=== PATIENT | female | born 1940 | race Caucasian/White ===

== ENCOUNTER 2025-02-14 13:52 | Inpatient (IN) | payer MEDICARE ==
--- NOTE | 2025-02-14 14:08 | ED ---
General Adult HPI - General Chief complaint: Shortness of Breath Stated complaint: Shortness of breath Time Seen by Provider: 02/14/25 14:00 Source: patient, RN notes reviewed Mode of arrival: EMS Limitations: no limitations - History of Present Illness Initial comments: Patient is an 84-year-old female present to the emergency department with concerns with difficulty breathing. Patient has chronic COPD. Symptoms are worse the past day. No fever. No cough. No calf pain or leg swelling. Symptoms are similar to previous chronic COPD. Patient is normally on 2 L nasal cannula. Oxygen in emergency department increased to 4 L and oxygen saturation is now 90%. - Related Data Home Medications Medication Instructions Recorded Confirmed Albuterol Inhaler [Ventolin Hfa 2 puff INHALATION RT-QID PRN 01/10/25 01/10/25 Inhaler] Fluticasone/Umeclidin/Vilanter 1 puff INHALATION RT-DAILY 01/10/25 01/10/25 [Trelegy Ellipta 200-62.5-25] Levothyroxine Sodium [Synthroid] 75 mcg PO DAILY 01/10/25 01/10/25 Mirtazapine 15 mg PO HS 01/10/25 01/10/25 Montelukast [Singulair] 10 mg PO DAILY 01/10/25 01/10/25 carvediloL [Coreg] 12.5 mg PO BID 01/10/25 01/10/25 lisinopriL 2.5 mg PO DAILY 01/10/25 01/10/25 Previous Rx's Medication Instructions Recorded Acetaminophen Tab [Tylenol] 650 mg PO Q6HR PRN tab 01/15/25 Dapagliflozin Propanediol [Farxiga] 10 mg PO DAILY tab 01/15/25 Enoxaparin [Lovenox] 40 mg SQ DAILY each 01/15/25 Furosemide [Lasix] 40 mg PO DAILY tab 01/15/25 Ipratropium-Albuterol Nebulize 3 ml INHALATION RT-Q2H PRN each 01/15/25 [Duoneb 0.5 mg-3 mg/3 ml Soln] Pantoprazole [Protonix] 40 mg PO AC-BRKFST tab 01/15/25 predniSONE See Taper PO DIRECTED #30 tab 01/15/25 Allergies Allergy/AdvReac Type Severity Reaction Status Date / Time aspirin Allergy Unknown Verified 01/10/25 11:23 diltiazem Allergy Swelling Verified 01/10/25 11:23 ezetimibe [From Zetia] Allergy Unknown Verified 01/10/25 11:23 metoprolol Allergy Swelling Verified 01/10/25 11:23 Penicillins Allergy Rash/Hives Verified 01/10/25 11:23 codeine AdvReac drowsiness/ Verified 01/10/25 11:23 nausea/vomi ting propoxyphene AdvReac drowsiness/ Verified 01/10/25 11:23 nausea/vomi ting [id number] Reductase AdvReac syncope Verified 01/10/25 11:23 Inhibitor Review of Systems ROS Statement: Those systems with pertinent positive or pertinent negative responses have been documented in the HPI. ROS Other: All systems not noted in ROS Statement are negative. Constitutional: Denies: fever Eyes: Denies: eye pain Respiratory: Reports: as per HPI, dyspnea. Denies: cough Cardiovascular: Reports: dyspnea on exertion. Denies: chest pain, orthopnea, edema Endocrine: Denies: fatigue Gastrointestinal: Denies: abdominal pain Past Medical History Past Medical History: Atrial Fibrillation, Heart Failure, COPD History of Any Multi-Drug Resistant Organisms: None Reported Past Surgical History: No Surgical Hx Reported Past Psychological History: No Psychological Hx Reported Smoking Status: Former smoker Past Alcohol Use History: None Reported Past Drug Use History: None Reported General Exam Limitations: no limitations General appearance: alert Head exam: Present: normocephalic Eye exam: Present: normal appearance Neck exam: Present: normal inspection Respiratory exam: Present: decreased breath sounds Cardiovascular Exam: Present: tachycardia, irregular rhythm GI/Abdominal exam: Present: soft. Absent: tenderness Extremities exam: Present: normal inspection. Absent: pedal edema, calf tenderness Neurological exam: Present: alert Psychiatric exam: Present: normal affect, normal mood Skin exam: Present: normal color Course Vital Signs 02/14/25 02/14/25 02/14/25 13:55 14:02 14:44 Temperature 98.2 F Pulse Rate 114 H 98 Respiratory 22 26 H Rate Blood Pressure 99/61 O2 Sat by Pulse 83 L Oximetry 02/14/25 02/14/25 15:20 16:00 Temperature Pulse Rate 109 H 105 H Respiratory 20 22 Rate Blood Pressure 106/93 114/85 O2 Sat by Pulse 87 L 92 L Oximetry EKG Findings - EKG Results: EKG: interpreted by ERMD, normal axis, normal QRS, normal ST/T EKG shows: tachycardia, atrial fibrillation Medical Decision Making - Medical Decision Making Was pt. sent in by a medical professional or institution ([facility]IM[facility] Newsome, [employer], urgent care, hospital, or [place] health care facility...) When possible be specific @ -No Did you speak to anyone other than the patient for history (EMS, parent, family, police, friend...)? What history was obtained from this source @ -No Did you review nursing and triage notes (agree or disagree)? Why? @ -I reviewed and agree with nursing and triage notes Were old charts reviewed (outside hosp., previous admission, EMS record, old EKG, old radiological studies, urgent care reports/EKG's, [place] health care facility records)? Report findings @ -No old charts were reviewed Differential Diagnosis (chest pain, altered mental status, abdominal pain women, abdominal pain men, vaginal bleeding, weakness, fever, dyspnea, syncope, headache, dizziness, GI bleed, back pain, seizure, CVA, palpatations, mental he alth, musculoskeletal)? @ -Differential Dyspnea: Coronary syndrome, arrhythmia, tamponade, asthma, COPD, pulmonary embolism, pneumonia, pneumothorax, pulmonary effusion, anaphylaxis, diabetic ketoacidosis, flailed chest, pulmonary contusion, diaphragmatic rupture, anemia, neuromuscular, this is not meant to be an all-inclusive list. EKG interpreted by me (3pts min.). @ -As above X-rays interpreted by me (1pt min.). @ -Chest x-ray without acute abnormality CT interpreted by me (1pt min.). @ -None done U/S interpreted by me (1pt. min.). @ -None done What testing was considered but not performed or refused? (CT, X-rays, U/S, labs)? Why? @ -None What meds were considered but not given or refused? Why? @ -None Did you discuss the management of the patient with other professionals (pro fessionals i.e. [facility]IMON Newsome, [employer], lab, RT, psych nurse, hospital social worker, licensed club manager, teacher, mail officer, vocational case manager)? Give summary @ -Case was discussed with peer Alfa or Darwin who will admit covering hospital call Was smoking cessation discussed for >3mins.? @ -No Was critical care preformed (if so, how long)? @ -No Were there social determinants of health that impacted care today? How? (Homeles sness, low income, unemployed, alcoholism, drug addiction, transportation, low edu. Level, literacy, decrease access to med. care, care home, rehab)? @ -No Was there de-escalation of care discussed even if they declined (Discuss DNR or withdrawal of care, Hospice)? DNR status @ -No What co-morbidities impacted this encounter? (DM, HTN, Smoking, COPD, CAD, Cancer, CVA, ARF, Chemo, Hep., AIDS, mental health diagnosis, sleep apnea, morbid obesity)? @ -History of COPD Was patient admitted / discharged? Hospital course, mention meds given and route, prescriptions, significant lab abnormalities, going to OR and other pertinent info. @ -Patient presents with dyspnea similar to previous COPD. Patient is hypoxic. Patient received nebulizer treatment and felt a little bit better. When oxygen was decreased patient became hypoxic again. Patient will be admitted with pulmonary consult. Patient was reevaluated and updated. Admission orders are written. Undiagnosed new problem with uncertain prognosis? @ -No Drug Therapy requiring intensive monitoring for toxicity (Heparin, Nitro, Insulin, Cardizem)? @ -No Were any procedures done? @ -No Diagnosis/symptom? @ -COPD Acute, or Chronic, or Acute on Chronic? @ -Acute Uncomplicated (without systemic symptoms) or Complicated (systemic symptoms)? @ -Default Side effects of treatment? @ -No Exacerbation, Progression, or Severe Exacerbation? @ -No Poses a threat to life or bodily function? How? (Chest pain, [place], [place], pneumonia, PE, COPD, DKA, ARF, appy, cholecystitis, CVA, Diverticulitis, Homicidal, Suicidal, threat to staff... and all critical care pts) @ -Threat to pulmonary function - Lab Data Result diagrams: 02/14/25 14:28 02/14/25 14:28 Lab Results 02/14/25 02/14/25 02/14/25 Range/Units 14:28 14:28 14:28 WBC 7.46 (4.50-10.00) 10*3/uL RBC 3.54 L (4.10-5.20) 10*6/uL Hgb 11.2 L (12.0-15.0) g/dL Hct 34.7 L (37.2-46.3) % MCV 98.0 H (80.0-97.0) fL MCH 31.6 (27.0-32.0) pg MCHC 32.3 (32.0-37.0) g/dL Plt Count 254 (140-440) 10*3/uL MPV 9.6 (9.5-12.2) fL Immature Gran % (Auto) 2.4 % Neutrophils % 67.5 % Lymphocytes % 16.8 % Monocytes % 10.9 % Eosinophils % 1.2 % Basophils % 1.2 % Immature Gran # 0.18 H (0.00-0.04) 10*3/uL Neutrophils # 5.04 (1.80-7.70) 10*3/uL Lymphocytes # 1.25 (0.90-5.00) 10*3/uL Monocytes # 0.81 (0.20-1.00) 10*3/uL Eosinophils # 0.09 (0.04-0.35) 10*3/uL Basophils # 0.09 (0.00-0.10) 10*3/uL PT 11.0 (10.0-12.5) sec INR 1.0 (<1.2) APTT 24.8 (22.0-30.0) sec Sodium 143 (137-145) mmol/L Potassium 3.9 (3.5-5.1) mmol/L Chloride 101 (98-107) mmol/L Carbon Dioxide 35 H (22-30) mmol/L Anion Gap 7 mmol/L BUN 24 H (7-17) mg/dL Creatinine 0.93 (0.52-1.04) mg/dL Est GFR (CKD-EPI)AfAm 67 (>60 ml/min/1.73 sqM) Est GFR (CKD-EPI)NonAf 58 (>60 ml/min/1.73 sqM) Glucose 181 H (74-99) mg/dL Plasma Lactic Acid Dereck (0.7-2.0) mmol/L Calcium 8.9 (8.4-10.2) mg/dL Magnesium 1.9 (1.6-2.3) mg/dL Total Bilirubin 1.7 H (0.2-1.3) mg/dL AST 23 (14-36) U/L ALT 11 (4-34) U/L Alkaline Phosphatase 98 (38-126) U/L Troponin I (0.000-0.034) ng/mL NT-Pro-B Natriuret Pep 7950 pg/mL Total Protein 6.6 (6.3-8.2) g/dL Albumin 3.7 (3.5-5.0) g/dL 02/14/25 02/14/25 Range/Units 14:28 14:28 WBC (4.50-10.00) 10*3/uL RBC (4.10-5.20) 10*6/uL Hgb (12.0-15.0) g/dL Hct (37.2-46.3) % MCV (80.0-97.0) fL MCH (27.0-32.0) pg MCHC (32.0-37.0) g/dL Plt Count (140-440) 10*3/uL MPV (9.5-12.2) fL Immature Gran % (Auto) % Neutrophils % % Lymphocytes % % Monocytes % % Eosinophils % % Basophils % % Immature Gran # (0.00-0.04) 10*3/uL Neutrophils # (1.80-7.70) 10*3/uL Lymphocytes # (0.90-5.00) 10*3/uL Monocytes # (0.20-1.00) 10*3/uL Eosinophils # (0.04-0.35) 10*3/uL Basophils # (0.00-0.10) 10*3/uL PT (10.0-12.5) sec INR (<1.2) APTT (22.0-30.0) sec Sodium (137-145) mmol/L Potassium (3.5-5.1) mmol/L Chloride (98-107) mmol/L Carbon Dioxide (22-30) mmol/L Anion Gap mmol/L BUN (7-17) mg/dL Creatinine (0.52-1.04) mg/dL Est GFR (CKD-EPI)AfAm (>60 ml/min/1.73 sqM) Est GFR (CKD-EPI)NonAf (>60 ml/min/1.73 sqM) Glucose (74-99) mg/dL Plasma Lactic Acid Dereck 1.2 (0.7-2.0) mmol/L Calcium (8.4-10.2) mg/dL Magnesium (1.6-2.3) mg/dL Total Bilirubin (0.2-1.3) mg/dL AST (14-36) U/L ALT (4-34) U/L Alkaline Phosphatase (38-126) U/L Troponin I <0.012 (0.000-0.034) ng/mL NT-Pro-B Natriuret Pep pg/mL Total Protein (6.3-8.2) g/dL Albumin (3.5-5.0) g/dL Disposition Clinical Impression: COPD with exacerbation Disposition: ADMITTED IP TO THIS HOSP Is patient prescribed a controlled substance at d/c from ED?: No Referrals: Nonstaff,Physician [Primary Care Provider] - 1-2 days Time of Disposition: 16:55
[2025-02-14] MEDS: methylPREDNISolone SOD SUCCI 125 MG/2 ML VIAL IV STA (14:18)
[2025-02-14 14:39] LABS: Basophils # (A) 0.09 10*3/uL (0.00-0.10); Basophils % (A) 1.2 %; Eosinophils # (A) 0.09 10*3/uL (0.04-0.35); Eosinophils % (A) 1.2 %; HCT 34.7 % (37.2-46.3); HGB 11.2 g/dL (12.0-15.0); Lymphocytes # (A) 1.25 10*3/uL (0.90-5.00); Lymphocytes % (A) 16.8 %; MCH 31.6 pg (27.0-32.0); MCHC 32.3 g/dL (32.0-37.0); MCV 98.0 fL (80.0-97.0); Monocytes # (A) 0.81 10*3/uL (0.20-1.00); Monocytes % (A) 10.9 %; Neutrophils # (A) 5.04 10*3/uL (1.80-7.70); Neutrophils % (A) 67.5 %; Platelet Count 254 10*3/uL (140-440); RBC 3.54 10*6/uL (4.10-5.20); RDW 14.0 % (11.5-14.5); WBC 7.46 10*3/uL (4.50-10.00)
[2025-02-14] MEDS: IPRATROPIUM-ALBUTEROL 3 ML NEB INHALATION STA ×2 (14:44→21:09)
[2025-02-14 14:51] LABS: INR 1.0 (<1.2); Partial Thromboplastin Time 24.8 sec (22.0-30.0); Prothrombin Time 11.0 sec (10.0-12.5)
[2025-02-14 14:55] LABS: ALT 11 U/L (4-34); AST 23 U/L (14-36); African American GFR (CKD) 67 (>60 ml/min/1.73 sqM); Albumin 3.7 g/dL (3.5-5.0); Alkaline Phosphatase 98 U/L (38-126); Anion Gap 7 mmol/L; Blood Urea Nitrogen 24 mg/dL (7-17); Calcium 8.9 mg/dL (8.4-10.2); Carbon Dioxide 35 mmol/L (22-30); Chloride 101 mmol/L (98-107); Glucose 181 mg/dL (74-99); Magnesium 1.9 mg/dL (1.6-2.3); Non-African American GFR(CKD) 58 (>60 ml/min/1.73 sqM); Potassium 3.9 mmol/L (3.5-5.1); Sodium 143 mmol/L (137-145); Total Protein 6.6 g/dL (6.3-8.2)
[2025-02-14 15:03] LABS: NT-Pro-B-Type Natriuretic Pept 7950 pg/mL
--- NOTE | 2025-02-14 15:23 | XR ---
EXAMINATION TYPE: XR chest 2V DATE OF EXAM: 02/14/2025 3:11 PM COMPARISON: 01/15/2025 CLINICAL INDICATION: Female, 84 years old with history of difficulty breathing: Shortness of breath TECHNIQUE: XR chest 2V views of the chest are obtained. FINDINGS: Scattered senescent parenchymal changes noted. Hyperinflation compatible with COPD. No evidence for infiltrate. No evidence for atelectasis. Heart size is stable. Mediastinal structures are stable and grossly unremarkable. No evidence for hilar prominence. Degenerative changes dorsal spine. IMPRESSION: 1. No evidence for acute pulmonary disease. [facility], , 02/14/2025 3:20 PM
[2025-02-14] MEDS ORDERED: IPRATROPIUM-ALBUTEROL 3 ML NEB INHALATION PRN (16:56)
[2025-02-14] MEDS ORDERED: NALOXONE 0.4 MG/ML 1 ML VIAL IVP PRN (16:56)
[2025-02-14] MEDS ORDERED: ALBUTEROL NEBULIZED 2.5 MG/3 ML INHALATION PRN (17:18)
--- NOTE | 2025-02-14 17:21 | P.HPIM ---
History of Present Illness H&P Date: 02/14/25 Patient is a 84-year-old female with medical history of chronic hypoxic respiratory failure secondary to COPD on home oxygen 3L, HFrEF EF 20 to 25%, severe pulmonary hypertension, moderate to severe MR, severe TR, persistent A- fib, history of hypothyroidism, who presented to the ER on 02/14/2025 with shortness of breath. Symptoms started earlier this morning, she does have chronic orthopnea that is worse today, denies associated lower extremity swelling, no wheezing however she noted that she never has wheezes, denies chest pain, abdominal pain, dysuria Of note, patient had a recent admission on early January 2025 for multifactorial acute on chronic hypoxic respiratory failure secondary to COPD, A-fib RVR, CHF exacerbation. She underwent extensive workup in the ER. Afebrile on admission, heart rate in 90s, was initially placed on 4 L, was still hypoxic at 87, oxygen flow increased to 6 L. Blood work significant for normal WBC count, stable hemoglobin 11.3, normal platelet count, sodium and potassium WNL, bicarb 35, creatinine 0.93, glucose 181, bilirubin 1.7, normal AST, ALT, troponin negative, BNP 7950, up from 4428 last admission. Chest x-ray read by cardiology is unremarkable, however, on my interpretation appears as pulmonary vascular congestion. Patient evaluated for acute on chronic hypoxic respiratory failure secondary to COPD and CHF exacerbation. EKG showed A-fib with RVR 107, QTc 384. Nonspecific ST and T wave abnormalities. Pertinent positives and negatives as discussed in HPI, a complete review of systems was performed and all other systems are negative. Patient seen and examined at bedside. Vital signs reviewed General: nontoxic, no distress, appears at stated age Derm: warm, dry Head: atraumatic, normocephalic, symmetric Eyes: EOMI, no lid lag, anicteric sclera, pupils equal round reactive to light ENT: Nose and ears atraumatic Neck: No thyromegaly, supple Mouth: no lip lesion, mucus membranes moist Cardiovascular: S1S2 reg, murmur, no edema Lungs: Diminished bilateral breath, bibasilar crackles, no wheeze, no accessory muscle use Abdominal: soft, nontender to palpation, no guarding, no appreciable organomegaly Ext: no gross muscle atrophy, muscle strength muscle strength 5 out of 5 in all 4 extremities, no contractures Neuro: CN II-XII grossly intact Psych: Alert, oriented, appropriate affect Assessment/Plan: Chronic hypoxic respiratory failure, multifactorial, secondary to COPD exacerbation and HFrEF exacerbation Severe pulmonary hypertension moderate to severe MR, severe TR, - Continue with IV Lasix 40 daily -Once medication reconciliation is done continue lisinopril 2.5 mg daily, Coreg 12.5 p.o. twice daily, Farxiga 10 mg p.o. daily -Continue with prednisone 40 mg daily -Continue Singulair 10 mg p.o. daily -Continue with Symbicort, DuoNebs 4 times daily and every 2 hours as needed -Strict I's and O's, daily weights -Continue telemetry -Pulmonology consulted, appreciate recommendations Hypothyroidism: Continue levothyroxine 75 mcg daily Chronic A-fib: Continue Coreg 12.5 twice daily, on Lovenox 40 mg subcu daily The patient is admitted with an anticipated greater than 2 midnight stay as inpatient status for evaluation of acute on chronic hypoxic respiratory failure. Surrogate decision-maker: Son CODE STATUS DNR/DNI DVT prophylaxis: Lovenox Anticipated discharge date: TBD Anticipated discharge place: TBD A total of 40 minutes was spent on the care of this complex patient more than 50% of the time was spent in counseling and care coordination. Past Medical History Past Medical History: Atrial Fibrillation, Heart Failure, COPD History of Any Multi-Drug Resistant Organisms: None Reported Past Surgical History: No Surgical Hx Reported Past Psychological History: No Psychological Hx Reported Smoking Status: Former smoker Past Alcohol Use History: None Reported Past Drug Use History: None Reported Medications and Allergies Home Medications Medication Instructions Recorded Confirmed Type Albuterol Inhaler [Ventolin Hfa 2 puff INHALATION RT-QID PRN 01/10/25 01/10/25 History Inhaler] Fluticasone/Umeclidin/Vilanter 1 puff INHALATION RT-DAILY 01/10/25 01/10/25 History [Trelegy Ellipta 200-62.5-25] Levothyroxine Sodium [Synthroid] 75 mcg PO DAILY 01/10/25 01/10/25 History Mirtazapine 15 mg PO HS 01/10/25 01/10/25 History Montelukast [Singulair] 10 mg PO DAILY 01/10/25 01/10/25 History carvediloL [Coreg] 12.5 mg PO BID 01/10/25 01/10/25 History lisinopriL 2.5 mg PO DAILY 01/10/25 01/10/25 History Acetaminophen Tab [Tylenol] 650 mg PO Q6HR PRN tab 01/15/25 Rx Dapagliflozin Propanediol [Farxiga] 10 mg PO DAILY tab 01/15/25 Rx Enoxaparin [Lovenox] 40 mg SQ DAILY each 01/15/25 Rx Furosemide [Lasix] 40 mg PO DAILY tab 01/15/25 Rx Ipratropium-Albuterol Nebulize 3 ml INHALATION RT-Q2H PRN each 01/15/25 Rx [Duoneb 0.5 mg-3 mg/3 ml Soln] Pantoprazole [Protonix] 40 mg PO AC-BRKFST tab 01/15/25 Rx predniSONE See Taper PO DIRECTED #30 tab 01/15/25 Rx Allergies Allergy/AdvReac Type Severity Reaction Status Date / Time aspirin Allergy Unknown Verified 01/10/25 11:23 diltiazem Allergy Swelling Verified 01/10/25 11:23 ezetimibe [From Zetia] Allergy Unknown Verified 01/10/25 11:23 metoprolol Allergy Swelling Verified 01/10/25 11:23 Penicillins Allergy Rash/Hives Verified 01/10/25 11:23 codeine AdvReac drowsiness/ Verified 01/10/25 11:23 nausea/vomi ting propoxyphene AdvReac drowsiness/ Verified 01/10/25 11:23 nausea/vomi ting [id number] Reductase AdvReac syncope Verified 01/10/25 11:23 Inhibitor Physical Exam Vitals: Vital Signs Temp Pulse Resp BP Pulse Ox 02/14/25 16:00 105 H 22 114/85 92 L 02/14/25 15:20 109 H 20 106/93 87 L 02/14/25 14:44 98 02/14/25 14:02 26 H 02/14/25 13:55 98.2 F 114 H 22 99/61 83 L Intake and Output 02/14/25 02/14/25 02/14/25 06:59 14:59 22:59 Other: Weight 60.328 kg Results CBC & Chem 7: 02/14/25 14:28 02/14/25 14:28 Labs: Abnormal Lab Results - Last 24 Hours (Table) 02/14/25 02/14/25 Range/Units 14:28 14:28 RBC 3.54 L (4.10-5.20) 10*6/uL Hgb 11.2 L (12.0-15.0) g/dL Hct 34.7 L (37.2-46.3) % MCV 98.0 H (80.0-97.0) fL Immature Gran # 0.18 H (0.00-0.04) 10*3/uL Carbon Dioxide 35 H (22-30) mmol/L BUN 24 H (7-17) mg/dL Glucose 181 H (74-99) mg/dL Total Bilirubin 1.7 H (0.2-1.3) mg/dL
[2025-02-14] MEDS: FUROSEMIDE 10 MG/ML 4 ML VIAL IV SCH (18:03)
[2025-02-14] MEDS: MIRTAZAPINE 15 MG TAB PO SCH (20:47)
[2025-02-14] MEDS ORDERED: MIRTAZAPINE 15 MG TAB PO SCH (21:00)
[2025-02-14] MEDS ORDERED: methylPREDNISolone SOD SUCCI 125 MG/2 ML VIAL IV SCH (21:00)
[2025-02-14] MEDS: IPRATROPIUM-ALBUTEROL 3 ML NEB INHALATION SCH (21:11)
[2025-02-15 06:16] LABS: Glucose,Whole Blood 145 mg/dL (70-110)
[2025-02-15] MEDS: SYMBICORT 160-4.5 MCG INHALER INHALATION SCH (06:24)
[2025-02-15] MEDS: LEVOTHYROXINE 75 MCG TAB PO SCH (06:57)
[2025-02-15] MEDS ORDERED: TIOTROPIUM 2.5 MCG INHALER INHALATION SCH (08:00)
[2025-02-15] MEDS: ENOXAPARIN 40 MG/0.4 ML SYRINGE SQ SCH (08:32)
[2025-02-15] MEDS: MONTELUKAST 10 MG TAB PO SCH (08:33)
--- NOTE | 2025-02-15 11:17 | P.PN ---
Subjective Progress Note Date: 02/15/25 Hospital Course: Patient is a 84-year-old female with medical history of chronic hypoxic respir atory failure secondary to COPD on home oxygen 3L, HFrEF EF 20 to 25%, severe pulmonary hypertension, moderate to severe MR, severe TR, persistent A-fib, history of hypothyroidism, who presented to the ER on 02/14/2025 with shortness of breath. Symptoms started earlier this morning, she does have chronic orthopnea that is worse today, denies associated lower extremity swelling, no wheezing however she noted that she never has wheezes, denies chest pain, abdominal pain, dysuria Of note, patient had a recent admission on early January 2025 for multifactorial acute on chronic hypoxic respiratory failure secondary to COPD, A-fib RVR, CHF exacerbation. She underwent extensive workup in the ER. Afebrile on admission, heart rate in 90s, was initially placed on 4 L, was still hypoxic at 87, oxygen flow increased to 6 L. Blood work significant for normal WBC count, stable hemoglobin 11.3, normal platelet count, sodium and potassium WNL, bicarb 35, creatinine 0.93, glucose 181, bilirubin 1.7, normal AST, ALT, troponin negative, BNP 7950, up from 4428 last admission. Chest x-ray read by cardiology is unremarkable, however, on my interpretation appears as pulmonary vascular congestion. Patient evaluated for acute on chronic hypoxic respiratory failure secondary to COPD and CHF exacerbation. EKG showed A-fib with RVR 107, QTc 384. Nonspecific ST and T wave abnormalities. Patient was admitted for management of hypoxic respiratory failure. 02/15/2025: Seen examined at bedside, no acute events overnight. Patient states that she initially started feeling better, however, in the morning she got more short of breath with exertion. She is satting well on 6 L of nasal cannula, will try to wean down, blood pressure is normotensive, she is afebrile. CBC and CMP pending. She will be continued on prednisone and IV Lasix. Pertinent positives and negatives as discussed above, a complete review of systems was performed and all other systems are negative. Vitals Signs Reviewed. General: [nontoxic], [no distress], [appears at stated age] Derm: [warm], [dry] Head: [atraumatic], [normocephalic], [symmetric] Eyes: [EOMI], [no lid lag], [anicteric sclera] Mouth: [no lip lesion], [mucus membranes moist] Cardiovascular: [S1S2 reg], [no murmur] Lungs: [Diminished bilateral breath, bibasilar crackles, no wheeze, no accessory muscle use Abdominal: [soft], [ nontender to palpation], [no guarding], [no appreciable organomegaly] Ext: [no gross muscle atrophy], [no edema], [no contractures] Neuro: [ CN II-XI grossly intact], [no focal neuro deficits] Psych: [Alert], [oriented], [appropriate affect] Assessment and Plan: Acute on chronic hypoxic respiratory failure, multifactorial, secondary to COPD exacerbation and HFrEF exacerbation Severe pulmonary hypertension moderate to severe MR, severe TR, - Continue with IV Lasix 40 daily -continue lisinopril 2.5 mg daily, Coreg 12.5 p.o. twice daily -She is not on GDMT at this time, previously was on Farxiga, will need to follow-up with cardiology -Continue with prednisone 40 mg daily -Continue Singulair 10 mg p.o. daily -Continue with Symbicort, DuoNebs 4 times daily and every 2 hours as needed -Strict I's and O's, daily weights -Wean down oxygen as tolerated -Continue telemetry -Pulmonology consulted, appreciate recommendations Hypothyroidism: Continue levothyroxine 75 mcg daily Chronic A-fib: Continue Coreg 12.5 twice daily, on Lovenox 40 mg subcu daily DVT ppx: Lovenox Code status: DNR/DNI Anticipated discharge place: [facility] Anticipated discharge time: TBD Objective - Vital Signs Vital signs: Vital Signs Temp 97.4 F L 02/15/25 07:00 Pulse 91 02/15/25 07:00 Resp 17 02/15/25 07:00 BP 130/80 02/15/25 07:00 Pulse Ox 99 02/15/25 07:00 FiO2 Intake & Output 02/14/25 02/15/25 02/15/25 18:59 06:59 18:59 Intake Total 240 Balance 240 Weight 60.328 kg 57.5 kg Intake: Oral 240 Other: Voiding Method Bedside Commode Toilet Diaper # Voids 1 - Labs CBC & Chem 7: 02/14/25 14:28 02/14/25 14:28 Labs: Abnormal Lab Results - Last 24 Hours (Table) 02/14/25 02/14/25 02/14/25 Range/Units 14:28 14:28 14:28 RBC 3.54 L (4.10-5.20) 10*6/uL Hgb 11.2 L (12.0-15.0) g/dL Hct 34.7 L (37.2-46.3) % MCV 98.0 H (80.0-97.0) fL Immature Gran # 0.18 H (0.00-0.04) 10*3/uL D-Dimer 1.70 H (<0.60) mg/L FEU Carbon Dioxide 35 H (22-30) mmol/L BUN 24 H (7-17) mg/dL Glucose 181 H (74-99) mg/dL POC Glucose (mg/dL) (70-110) mg/dL Total Bilirubin 1.7 H (0.2-1.3) mg/dL 02/15/25 Range/Units 06:15 RBC (4.10-5.20) 10*6/uL Hgb (12.0-15.0) g/dL Hct (37.2-46.3) % MCV (80.0-97.0) fL Immature Gran # (0.00-0.04) 10*3/uL D-Dimer (<0.60) mg/L FEU Carbon Dioxide (22-30) mmol/L BUN (7-17) mg/dL Glucose (74-99) mg/dL POC Glucose (mg/dL) 145 H (70-110) mg/dL Total Bilirubin (0.2-1.3) mg/dL
[2025-02-15 12:00] LABS: Basophils # (A) 0.02 X 10*3/uL (0.00-0.10); Basophils % (A) 0.4 %; Eosinophils # (A) 0 X 10*3/uL (0.04-0.35); Eosinophils % (A) 0 %; HCT 35.3 % (37.2-46.3); HGB 11.0 g/dL (12.0-15.0); Immature Grans, Automated 2.60 %; Lymphocytes # (A) 0.66 X 10*3/uL (0.90-5.00); Lymphocytes % (A) 13.4 %; MCH 31.0 pg (27.0-32.0); MCHC 31.2 g/dL (32.0-37.0); MCV 99.4 FL (80.0-97.0); Monocytes # (A) 0.18 X 10*3/uL (0.20-1.00); Monocytes % (A) 3.7 %; NRBC Per 100 WBC 0 X 10*3/uL (0.00-0.01); Neutrophils # (A) 3.94 X 10*3/uL (1.80-7.70); Neutrophils % (A) 79.9 %; Platelet Count 261 X 10*3/uL (140-440); RBC 3.55 X 10*6/uL (4.10-5.20); RDW 13.9 % (11.5-14.5); WBC 4.93 X 10*3/uL (4.50-10.00)
--- NOTE | 2025-02-15 12:35 | XR ---
EXAMINATION TYPE: XR chest 1V portable DATE OF EXAM: 02/15/2025 12:27 PM COMPARISON: 02/14/2025 CLINICAL INDICATION: Female, 84 years old with history of persistent hypoxia, TECHNIQUE: XR chest 1V portable views of the chest are obtained. FINDINGS: Demonstrated are scattered senescent parenchymal change. There is no evidence for focal infiltrate. Linear atelectasis or parenchymal scar right midlung zone. The heart is stable. Hilar and mediastinal structures are within normal limits. Degenerative changes are seen of the dorsal spine. IMPRESSION: 1. Chronic changes without evidence for acute pulmonary disease. [facility], , 02/15/2025 12:33 PM
[2025-02-15 12:52] LABS: ALT 10 U/L (8-44); AST 17 U/L (13-35); Albumin 3.6 g/dL (3.8-4.9); Albumin/Globulin Ratio 1.33 Ratio (1.60-3.17); Alkaline Phosphatase 96 U/L (41-126); Anion Gap 10.80 mmol/L (4.00-12.00); BUN/Creat Ratio 26.80 Ratio (12.00-20.00); Blood Urea Nitrogen 26.8 mg/dL (9.0-27.0); Calcium 8.7 mg/dL (8.7-10.3); Carbon Dioxide 32.2 mmol/L (21.6-31.8); Chloride 101 mmol/L (96-109); Globulin 2.7 g/dL (1.6-3.3); Glucose 148 mg/dL (70-110); Potassium 4.6 mmol/L (3.5-5.5); Sodium 144 mmol/L (135-145); Total Protein 6.3 g/dL (6.2-8.2)
--- NOTE | 2025-02-15 14:53 | P.CNPUL ---
History of Present Illness Consult date: 02/15/25 Requesting physician: Alvaro Ojeda Reason for consult: dyspnea, COPD Chief complaint: Shortness of breath, wheezing History of present illness: This is an 84-year-old female patient with a known history of atrial fibrillation, congestive heart failure, oxygen dependent chronic obstructive pulmonary disease, former smoker. She presented here to the emergency room yesterday with a 2 to 3-day history of increasing shortness of breath, cough and congestion. No fever or chills. No nausea vomiting diarrhea. Cough is dry nonproductive. Mostly dyspnea with exertion. Chest x-ray reveals no evidence of an acute pulmonary disease. White count 4.9. Hemoglobin 11.0. Platelets 261. Sodium 144. Potassium 4.6. BUN 27. Creatinine 1.0. Glucose 148. Troponin negative x 1. proBNP 7950. She is seen today in consultation on the regular medical floor. She is currently sitting up in bed. Awake and alert in no acute distress. Maintaining O2 saturations in the 90s on 3 L/min per nasal cannula. She has been afebrile. Hemodynamically stable. Review of Systems REVIEW OF SYSTEMS: CONSTITUTIONAL: Denies any recent significant weight loss or weight gain. EYES: Denies change in vision. EARS, NOSE, MOUTH, THROAT: Denies headaches, denies sore throat. CARDIOVASCULAR: Denies chest pain, palpitations or syncopal episodes. RESPIRATORY: Positive for shortness of breath, cough, congestion no hemoptysis. GASTROINTESTINAL: Denies change in appetite, denies abdominal pain GENITOURINARY: Denies hematuria, denies infections. MUSKULOSKELETAL: Denies pain, denies swelling. INTEGUMENTARY: Denies rash, denies eczema. NEUROLOGICAL: Denies recent memory loss, no recent seizure activity. PSYCHIATRIC: Denies anxiety, denies depression. HEMATOLOGIC/LYMPHATIC: Denies anemia, denies enlarged lymph nodes. Past Medical History Past Medical History: Atrial Fibrillation, Heart Failure, COPD, Thyroid Disorder History of Any Multi-Drug Resistant Organisms: None Reported Past Surgical History: No Surgical Hx Reported Past Psychological History: No Psychological Hx Reported Smoking Status: Former smoker Past Alcohol Use History: None Reported Past Drug Use History: None Reported Medications and Allergies Home Medications Medication Instructions Recorded Confirmed Type Albuterol Inhaler [Ventolin Hfa 2 puff INHALATION RT-QID PRN 01/10/25 02/14/25 History Inhaler] Fluticasone/Umeclidin/Vilanter 1 puff INHALATION RT-DAILY 01/10/25 02/14/25 History [Trelegy Ellipta 200-62.5-25] Levothyroxine Sodium [Synthroid] 75 mcg PO DAILY 01/10/25 02/14/25 History Mirtazapine 15 mg PO BID 01/10/25 02/14/25 History Montelukast [Singulair] 10 mg PO DAILY 01/10/25 02/14/25 History carvediloL [Coreg] 12.5 mg PO BID 01/10/25 02/14/25 History lisinopriL 2.5 mg PO DAILY 01/10/25 02/14/25 History Acetaminophen Tab [Tylenol] 650 mg PO Q6HR PRN tab 01/15/25 02/14/25 Rx Furosemide [Lasix] 40 mg PO DAILY tab 01/15/25 02/14/25 Rx Allergies Allergy/AdvReac Type Severity Reaction Status Date / Time aspirin Allergy Unknown Verified 01/10/25 11:23 diltiazem Allergy Swelling Verified 01/10/25 11:23 ezetimibe [From Zetia] Allergy Unknown Verified 01/10/25 11:23 metoprolol Allergy Swelling Verified 01/10/25 11:23 Penicillins Allergy Rash/Hives Verified 01/10/25 11:23 codeine AdvReac drowsiness/ Verified 01/10/25 11:23 nausea/vomi ting propoxyphene AdvReac drowsiness/ Verified 01/10/25 11:23 nausea/vomi ting [id number] Reductase AdvReac syncope Verified 01/10/25 11:23 Inhibitor Physical Exam Vitals: Vital Signs Temp Pulse Pulse Pulse Resp BP BP 02/15/25 14:23 98.1 F 95 22 96/61 02/15/25 07:00 97.4 F L 91 17 130/80 02/15/25 06:35 87 18 02/15/25 06:25 89 18 02/15/25 04:05 97.8 F 67 17 02/15/25 02:00 86 19 02/14/25 21:21 96 02/14/25 21:12 98 02/14/25 20:00 97.7 F 93 20 02/14/25 18:30 112 H 24 102/84 02/14/25 18:02 135 H 27 H 92/69 02/14/25 16:00 105 H 22 114/85 02/14/25 15:20 109 H 20 106/93 02/14/25 14:44 98 BP Pulse Ox 02/15/25 14:23 94 L 02/15/25 07:00 99 02/15/25 06:35 02/15/25 06:25 02/15/25 04:05 126/79 96 02/15/25 02:00 103/79 99 02/14/25 21:21 02/14/25 21:12 02/14/25 20:00 106/85 95 02/14/25 18:30 93 L 02/14/25 18:02 92 L 02/14/25 16:00 92 L 02/14/25 15:20 87 L 02/14/25 14:44 Intake and Output 02/14/25 02/15/25 02/15/25 22:59 06:59 14:59 Intake Total 480 Balance 480 Intake: Oral 480 Other: Voiding Method Bedside Commode Bedside Commode Toilet Diaper # Voids 1 2 Weight 60.328 kg 57.5 kg GENERAL EXAM: Alert, pleasant 84-year-old female, on 3 L nasal cannula, fairly comfortable in no apparent distress. HEAD: Normocephalic. EYES: Normal reaction of pupils, equal size. NOSE: Clear with pink turbinates. THROAT: No erythema or exudates. NECK: No masses, no JVD. CHEST: No chest wall deformity. LUNGS: Equal air entry with bilateral end expiratory wheeze, diminished. CVS: S1 and S2 normal with no audible murmur, regular rhythm. ABDOMEN: No hepatosplenomegaly, normal bowel sounds, no guarding or rigidity. SPINE: No scoliosis or deformity SKIN: No rashes CENTRAL NERVOUS SYSTEM: No focal deficits, tone is normal in all 4 extremities. EXTREMITIES: There is no peripheral edema. No clubbing, no cyanosis. Peripheral pulses are intact. Results - Laboratory Findings CBC and BMP: 02/15/25 06:45 02/15/25 06:45 PT/INR, D-dimer PT 11.0 sec (10.0-12.5) 02/14/25 14:28 INR 1.0 (<1.2) 02/14/25 14:28 D-Dimer 1.70 mg/L FEU (<0.60) H 02/14/25 14:28 Abnormal lab findings: Abnormal Labs 02/14/25 02/14/25 02/14/25 14:28 14:28 14:28 RBC 3.54 L Hgb 11.2 L Hct 34.7 L MCV 98.0 H MCHC Immature Gran # 0.18 H Lymphocytes # Monocytes # Eosinophils # D-Dimer 1.70 H Carbon Dioxide 35 H BUN 24 H Est GFR (CKD-EPI) BUN/Creatinine Ratio Glucose 181 H POC Glucose (mg/dL) Total Bilirubin 1.7 H Albumin Albumin/Globulin Ratio 02/15/25 02/15/25 02/15/25 06:15 06:45 06:45 RBC 3.55 L Hgb 11.0 L Hct 35.3 L MCV 99.4 H MCHC 31.2 L Immature Gran # 0.13 H Lymphocytes # 0.66 L Monocytes # 0.18 L Eosinophils # 0 L D-Dimer Carbon Dioxide 32.2 H BUN Est GFR (CKD-EPI) 56 L BUN/Creatinine Ratio 26.80 H Glucose 148 H POC Glucose (mg/dL) 145 H Total Bilirubin Albumin 3.6 L Albumin/Globulin Ratio 1.33 L - Diagnostic Findings Chest x-ray: image reviewed Assessment and Plan Assessment: Acute on chronic hypoxic respiratory failure secondary to an acute exacerbation of chronic obstructive pulmonary disease and acute exacerbation of systolic congestive heart failure History of oxygen dependent chronic obstructive pulmonary disease, maintained on Trelegy and oxygen at 3 L/min per nasal cannula Former smoker History of systolic congestive heart failure with an ejection fraction 20 to 25% Mild to moderate mitral regurgitation History of atrial fibrillation, not on anticoagulation Hypothyroidism Plan: The patient was seen and evaluated Chest x-ray, labs and medications reviewed No acute pulmonary process Initiated on DuoNeb inhalations Initiated on Symbicort Initiated on a prednisone taper Lovenox for DVT prophylaxis Initiated on IV Lasix Home medications resumed Titrate the FiO2 as tolerated Increase her activity as tolerated We will continue to follow and make further recommendations based on her clinical status I have personally seen and examined the patient, performed the documentation and the assessment and plan as written. Number of minutes spent on the visit: 20 Dictation was produced using [employer] software. Please excuse any grammatical, word or spelling errors. Time with Patient: Greater than 30
[2025-02-16] MEDS: FUROSEMIDE 40 MG TAB PO SCH ×2 (09:16→20:31)
--- NOTE | 2025-02-16 12:44 | P.PN ---
Subjective Progress Note Date: 02/16/25 This is an 84-year-old female patient with a known history of atrial fibrillation, congestive heart failure, oxygen dependent chronic obstructive pulmonary disease, former smoker. She presented here to the emergency room yesterday with a 2 to 3-day history of increasing shortness of breath, cough and congestion. No fever or chills. No nausea vomiting diarrhea. Cough is dry nonproductive. Mostly dyspnea with exertion. Chest x-ray reveals no evidence of an acute pulmonary disease. White count 4.9. Hemoglobin 11.0. Platelets 261. Sodium 144. Potassium 4.6. BUN 27. Creatinine 1.0. Glucose 148. Troponin negative x 1. proBNP 7950. She is seen today in consultation on the regular medical floor. She is currently sitting up in bed. Awake and alert in no acute distress. Maintaining O2 saturations in the 90s on 3 L/min per nasal cannula. She has been afebrile. Hemodynamically stable. The patient is seen today February 16, 2025 in follow-up on the regular medical floor. She is currently sitting up in bed. Awake and alert in no acute distress. Maintaining good O2 saturations in the high 90s on 2 L/min per nasal cannula. She denies any worsening shortness of breath, cough or congestion. She is maintained on DuoNeb inhalations, Symbicort, Singulair, prednisone taper. Lovenox for DVT prophylaxis. Remains on oral diuretics. No new labs today. Objective - Vital Signs Vital signs: Vital Signs Temp 98.2 F 02/16/25 06:50 Pulse 88 02/16/25 06:50 Resp 18 02/16/25 06:50 BP 109/71 02/16/25 06:50 Pulse Ox 99 02/16/25 06:50 FiO2 Intake & Output 02/15/25 02/16/25 02/16/25 18:59 06:59 18:59 Intake Total 480 Output Total 200 350 700 Balance 280 -350 -700 Weight 57.5 kg Intake: Oral 480 Output: Urine 200 350 700 Other: Voiding Method Toilet Toilet Toilet Diaper Diaper Diaper # Voids 2 2 - Exam GENERAL EXAM: Alert, active, pleasant 84-year-old female, on 2 L nasal cannula, comfortable in no apparent distress. HEAD: Normocephalic. EYES: Normal reaction of pupils, equal size. NOSE: Clear with pink turbinates. THROAT: No erythema or exudates. NECK: No masses, no JVD. CHEST: No chest wall deformity. LUNGS: Equal air entry with no crackles, wheeze, rhonchi or dullness. CVS: S1 and S2 normal with no audible murmur, regular rhythm. ABDOMEN: No hepatosplenomegaly, normal bowel sounds, no guarding or rigidity. SPINE: No scoliosis or deformity SKIN: No rashes CENTRAL NERVOUS SYSTEM: No focal deficits, tone is normal in all 4 extremities. EXTREMITIES: There is no peripheral edema. No clubbing, no cyanosis. Peripheral pulses are intact. - Labs CBC & Chem 7: 02/15/25 06:45 02/15/25 06:45 Labs: Abnormal Lab Results - Last 24 Hours (Table) 02/15/25 Range/Units 06:45 Carbon Dioxide 32.2 H (21.6-31.8) mmol/L Est GFR (CKD-EPI) 56 L (>=60) BUN/Creatinine Ratio 26.80 H (12.00-20.00) Ratio Glucose 148 H (70-110) mg/dL Albumin 3.6 L (3.8-4.9) g/dL Albumin/Globulin Ratio 1.33 L (1.60-3.17) Ratio Assessment and Plan Assessment: Acute on chronic hypoxic respiratory failure secondary to an acute exacerbation of chronic obstructive pulmonary disease and acute exacerbation of systolic congestive heart failure History of oxygen dependent chronic obstructive pulmonary disease, maintained on Trelegy and oxygen at 3 L/min per nasal cannula Former smoker History of systolic congestive heart failure with an ejection fraction 20 to 25% Mild to moderate mitral regurgitation History of atrial fibrillation, not on anticoagulation Hypothyroidism Plan: The patient was seen and evaluated Medications reviewed Stable on 2 L nasal cannula Cleared for discharge Continue her home oxygen/pulmonary medications Complete a prednisone taper Follow-up in our office in 1 week I have personally seen and examined the patient, performed the documentation and the assessment and plan as written. Number of minutes spent on the visit: 10 Dictation was produced using [employer] dictation software. Please excuse any grammatical, word or spelling errors.
--- NOTE | 2025-02-16 15:37 | P.PN ---
Subjective Progress Note Date: 02/16/25 Hospital Course: Patient is a 84-year-old female with medical history of chronic hypoxic respir atory failure secondary to COPD on home oxygen 3L, HFrEF EF 20 to 25%, severe pulmonary hypertension, moderate to severe MR, severe TR, persistent A-fib, history of hypothyroidism, who presented to the ER on 02/14/2025 with shortness of breath. Symptoms started earlier this morning, she does have chronic orthopnea that is worse today, denies associated lower extremity swelling, no wheezing however she noted that she never has wheezes, denies chest pain, abdominal pain, dysuria Of note, patient had a recent admission on early January 2025 for multifactorial acute on chronic hypoxic respiratory failure secondary to COPD, A-fib RVR, CHF exacerbation. She underwent extensive workup in the ER. Afebrile on admission, heart rate in 90s, was initially placed on 4 L, was still hypoxic at 87, oxygen flow increased to 6 L. Blood work significant for normal WBC count, stable hemoglobin 11.3, normal platelet count, sodium and potassium WNL, bicarb 35, creatinine 0.93, glucose 181, bilirubin 1.7, normal AST, ALT, troponin negative, BNP 7950, up from 4428 last admission. Chest x-ray read by cardiology is unremarkable, however, on my interpretation appears as pulmonary vascular congestion. Patient evaluated for acute on chronic hypoxic respiratory failure secondary to COPD and CHF exacerbation. EKG showed A-fib with RVR 107, QTc 384. Nonspecific ST and T wave abnormalities. Patient was admitted for management of hypoxic respiratory failure. 02/15/2025: Seen examined at bedside, no acute events overnight. Patient states that she initially started feeling better, however, in the morning she got more short of breath with exertion. She is satting well on 6 L of nasal cannula, will try to wean down, blood pressure is normotensive, she is afebrile. CBC and CMP pending. She will be continued on prednisone and IV Lasix. 02/2025: Patient was seen examined at bedside, no acute events overnight, patient felt that she is getting ready for discharge, she still was getting short of breath on exertion. Her saturation is now going on home oxygen level of 3 L. I was later notified that patient went into A-fib with RVR with heart rate in 120s 130s and blood pressure being soft 90s over 60s, patient was asymptomatic and feeling well. She then had an episode of shortness of breath after having a bowel movement, desatted to 80s with heart rate been in the 160s, feeling anxious, she recovered fast with heart rate coming down to 110s and blood pressure improving to 120s over 70s, back to home oxygen level. We will hold on discharge for now, patient will be maintained on oral Lasix 40 twice daily which is increased dose from 40 daily. Will keep patient on telemetry. Of note, she is not on anticoagulation due to bleeding unsure what type and where, reportedly unable to tolerate anticoagulation.. All of the above was communicated with patient's RN Pertinent positives and negatives as discussed above, a complete review of systems was performed and all other systems are negative. Vitals Signs Reviewed. General: [nontoxic], [no distress], [appears at stated age] Derm: [warm], [dry] Head: [atraumatic], [normocephalic], [symmetric] Eyes: [EOMI], [no lid lag], [anicteric sclera] Mouth: [no lip lesion], [mucus membranes moist] Cardiovascular: [S1S2 irreg], [no murmur] Lungs: [Diminished bilateral breath, bibasilar crackles, no wheeze, no accessory muscle use Abdominal: [soft], [ nontender to palpation], [no guarding], [no appreciable organomegaly] Ext: [no gross muscle atrophy], [no edema], [no contractures] Neuro: [ CN II-XI grossly intact], [no focal neuro deficits] Psych: [Alert], [oriented], [appropriate affect] Assessment and Plan: Acute on chronic hypoxic respiratory failure, multifactorial, secondary to COPD exacerbation and HFrEF exacerbation Severe pulmonary hypertension moderate to severe MR, severe TR, - Continue with oral Lasix 40 twice daily -continue lisinopril 2.5 mg daily, Coreg 12.5 p.o. twice daily -She is not on GDMT at this time, previously was on Farxiga, will need to follow-up with cardiology -Continue with prednisone 40 mg daily -Continue Singulair 10 mg p.o. daily -Continue with Symbicort, DuoNebs 4 times daily and every 2 hours as needed -Strict I's and O's, daily weights -Wean down oxygen as tolerated -Continue telemetry -Pulmonology consulted, appreciate recommendations Hypothyroidism: Continue levothyroxine 75 mcg daily A-fib with RVR: Continue Coreg 12.5 twice daily, on Lovenox 40 mg subcu daily not on anticoagulation due to history of bleeding, patient unsure what type and aware. Needs to be further discussed with her primary credit reference clerk. DVT ppx: Lovenox Code status: DNR/DNI Anticipated discharge place: [facility] Anticipated discharge time: 02/17 Objective - Vital Signs Vital signs: Vital Signs Temp 97.8 F 02/16/25 13:50 Pulse 114 H 02/16/25 14:20 Resp 18 02/16/25 14:20 BP 94/59 02/16/25 14:20 Pulse Ox 92 L 02/16/25 14:20 FiO2 Intake & Output 02/15/25 02/16/25 02/16/25 18:59 06:59 18:59 Intake Total 480 118 Output Total 200 350 700 Balance 280 -350 -582 Weight 57.5 kg Intake: Oral 480 118 Output: Urine 200 350 700 Other: Voiding Method Toilet Toilet Toilet Diaper Diaper Diaper # Voids 2 2 # Bowel Movements 1 - Labs CBC & Chem 7: 02/15/25 06:45 02/15/25 06:45
--- NOTE | 2025-02-17 09:57 | P.PN ---
Subjective Progress Note Date: 02/17/25 This is an 84-year-old female patient with a known history of atrial fibrillation, congestive heart failure, oxygen dependent chronic obstructive pulmonary disease, former smoker. She presented here to the emergency room yesterday with a 2 to 3-day history of increasing shortness of breath, cough and congestion. No fever or chills. No nausea vomiting diarrhea. Cough is dry nonproductive. Mostly dyspnea with exertion. Chest x-ray reveals no evidence of an acute pulmonary disease. White count 4.9. Hemoglobin 11.0. Platelets 261. Sodium 144. Potassium 4.6. BUN 27. Creatinine 1.0. Glucose 148. Troponin negative x 1. proBNP 7950. She is seen today in consultation on the regular medical floor. She is currently sitting up in bed. Awake and alert in no acute distress. Maintaining O2 saturations in the 90s on 3 L/min per nasal cannula. She has been afebrile. Hemodynamically stable. The patient is seen today February 16, 2025 in follow-up on the regular medical floor. She is currently sitting up in bed. Awake and alert in no acute distress. Maintaining good O2 saturations in the high 90s on 2 L/min per nasal cannula. She denies any worsening shortness of breath, cough or congestion. She is maintained on DuoNeb inhalations, Symbicort, Singulair, prednisone taper. Lovenox for DVT prophylaxis. Remains on oral diuretics. No new labs today. The patient is seen today February 17, 2025 in follow-up on the regular medical floor. She is awake and alert in no acute distress. Sitting up in bed. Denies any worsening shortness of breath, cough or congestion. Maintaining O2 satu rations in the 90s on 4 L/min per nasal cannula. No new labs today. She remains on DuoNeb inhalations, Symbicort, prednisone taper. Remains on Singulair. Lovenox for DVT prophylaxis. Remains on oral diuretics. Currently in a negative balance. Objective - Vital Signs Vital signs: Vital Signs Temp 97.6 F 02/17/25 07:16 Pulse 100 02/17/25 08:06 Resp 18 02/17/25 07:16 BP 142/88 02/17/25 07:16 Pulse Ox 97 02/17/25 07:16 FiO2 Intake & Output 02/16/25 02/17/2525 18:59 06:59 18:59 Intake Total 236 540 298 Output Total 700 500 Balance -464 40 298 Weight 57.2 kg Intake: Oral 236 540 298 Output: Urine 700 500 Other: Voiding Method Toilet Toilet Diaper Bedside Commode Diaper # Voids 1 # Bowel Movements 0 - Exam GENERAL EXAM: Alert, 84-year-old female, on 4 L nasal cannula, resting in bed, comfortable in no apparent distress. HEAD: Normocephalic. EYES: Normal reaction of pupils, equal size. NOSE: Clear with pink turbinates. THROAT: No erythema or exudates. NECK: No masses, no JVD. CHEST: No chest wall deformity. LUNGS: Equal air entry with no crackles, wheeze, rhonchi or dullness. CVS: S1 and S2 normal with no audible murmur, regular rhythm. ABDOMEN: No hepatosplenomegaly, normal bowel sounds, no guarding or rigidity. SPINE: No scoliosis or deformity SKIN: No rashes CENTRAL NERVOUS SYSTEM: No focal deficits, tone is normal in all 4 extremities. EXTREMITIES: There is no peripheral edema. No clubbing, no cyanosis. Peripheral pulses are intact. - Labs CBC & Chem 7: 02/15/25 06:45 02/15/25 06:45 Assessment and Plan Assessment: Acute on chronic hypoxic respiratory failure secondary to an acute exacerbation of chronic obstructive pulmonary disease and acute exacerbation of systolic congestive heart failure History of oxygen dependent chronic obstructive pulmonary disease, maintained on Trelegy and oxygen at 3 L/min per nasal cannula Former smoker History of systolic congestive heart failure with an ejection fraction 20 to 25% Mild to moderate mitral regurgitation History of atrial fibrillation, not on anticoagulation Hypothyroidism Plan: The patient was seen and evaluated Medications reviewed Stable on 4 L nasal cannula Cleared for discharge Continue her home oxygen Continue Trelegy Continue Singulair Continue albuterol HFA Complete a prednisone taper Follow-up in our office in 1 week This patient was seen independently by the pulmonary nurse practitioner addressing pulmonary issues I have personally seen and examined the patient, performed the documentation and the assessment and plan as written. Number of minutes spent on the visit: 24 Dictation was produced using [employer] dictation software. Please excuse any grammatical, word or spelling errors.
--- NOTE | 2025-02-17 12:29 | XR ---
EXAMINATION TYPE: XR chest 1V portable DATE OF EXAM: 02/17/2025 11:38 AM COMPARISON: Chest radiographs from 02/15/2025. CLINICAL INDICATION: Female, 84 years old with history of worsening dyspnea; [facility] TECHNIQUE: XR chest 1V portable Frontal view of the chest. FINDINGS: Lungs/Pleura: There is no evidence of pleural effusion, focal consolidation, or pneumothorax. Pulmonary vascularity: Pulmonary vascular congestion. Heart/mediastinum: Cardiomediastinal silhouette is unremarkable. Heart apex on the right. Musculoskeletal: No acute osseous pathology. IMPRESSION: 1. Cardiomegaly and mild pulmonary vascular congestion. Correlate with BNP for congestive heart fail ure. 2. Dextrocardia. [facility], , 02/17/2025 12:27 PM
--- NOTE | 2025-02-17 14:17 | P.PN ---
Subjective Progress Note Date: 02/17/25 =Hospital Course: Patient is a 84-year-old female with medical history of chronic hypoxic respi ratory failure secondary to COPD on home oxygen 3L, HFrEF EF 20 to 25%, severe pulmonary hypertension, moderate to severe MR, severe TR, persistent A-fib, history of hypothyroidism, who presented to the ER on 02/14/2025 with shortness of breath. Symptoms started earlier this morning, she does have chronic orthopnea that is worse today, denies associated lower extremity swelling, no wheezing however she noted that she never has wheezes, denies chest pain, abdominal pain, dysuria Of note, patient had a recent admission on early January 2025 for multifactorial acute on chronic hypoxic respiratory failure secondary to COPD, A-fib RVR, CHF exacerbation. She underwent extensive workup in the ER. Afebrile on admission, heart rate in 90s, was initially placed on 4 L, was still hypoxic at 87, oxygen flow increased to 6 L. Blood work significant for normal WBC count, stable hemoglobin 11.3, normal platelet count, sodium and potassium WNL, bicarb 35, creatinine 0.93, glucose 181, bilirubin 1.7, normal AST, ALT, troponin negative, BNP 7950, up from 4428 last admission. Chest x-ray read by cardiology is unremarkable, however, on my interpretation appears as pulmonary vascular congestion. Patient evaluated for acute on chronic hypoxic respiratory failure secondary to COPD and CHF exacerbation. EKG showed A-fib with RVR 107, QTc 384. Nonspecific ST and T wave abnormalities. Patient was admitted for management of hypoxic respiratory failure. 02/16/2025: Patient was seen examined at bedside, no acute events overnight, patient felt that she is getting ready for discharge, she still was getting short of breath on exertion. Her saturation is now going on home oxygen level of 3 L. I was later notified that patient went into A-fib with RVR with heart rate in 120s 130s and blood pressure being soft 90s over 60s, patient was asymptomatic and feeling well. She then had an episode of shortness of breath after having a bowel movement, desatted to 80s with heart rate been in the 160s, feeling anxious, she recovered fast with heart rate coming down to 110s and blood pressure improving to 120s over 70s, back to home oxygen level. We will hold on discharge for now, patient will be maintained on oral Lasix 40 twice daily which is increased dose from 40 daily. Will keep patient on telemetry. Of note, she is not on anticoagulation due to bleeding unsure what type and where, reportedly unable to tolerate anticoagulation.. All of the above was communicated with patient's RN 02/17: Seen examined at bedside, no acute events overnight, patient is on home oxygen 3 L, blood pressure improved. Heart rate was controlled. Patient states that she still gets very short of breath with minimal activity. Review of prior cardiology note, patient does have shortness of breath with minimal exertion baseline, however, patient states that it feels worse. Repeat x-ray showed mild pulmonary congestion. Due to advanced heart failure and ongoing worsening dyspnea, will consult cardiology. Due to soft blood pressure, will continue with oral Lasix 40 twice daily. discussed with RN Pertinent positives and negatives as discussed above, a complete review of systems was performed and all other systems are negative. Vitals Signs Reviewed. General: [nontoxic], [no distress], [appears at stated age] Derm: [warm], [dry] Head: [atraumatic], [normocephalic], [symmetric] Eyes: [EOMI], [no lid lag], [anicteric sclera] Mouth: [no lip lesion], [mucus membranes moist] Cardiovascular: [S1S2 irreg], [no murmur] Lungs: [Diminished bilateral breath, bibasilar crackles, no wheeze, no accessory muscle use Abdominal: [soft], [ nontender to palpation], [no guarding], [no appreciable organomegaly] Ext: [no gross muscle atrophy], [no edema], [no contractures] Neuro: [ CN II-XI grossly intact], [no focal neuro deficits] Psych: [Alert], [oriented], [appropriate affect] Assessment and Plan: Acute on chronic hypoxic respiratory failure, multifactorial, secondary to COPD exacerbation and HFrEF exacerbation Severe pulmonary hypertension moderate to severe MR, severe TR, - Continue with oral Lasix 40 twice daily -Repeat x-ray as above -Cardiology, appreciate recommendations -continue lisinopril 2.5 mg daily, Coreg 12.5 p.o. twice daily -She is not on GDMT at this time, previously was on Farxiga, will need to follow-up with cardiology -Continue with prednisone 40 mg daily -Continue Singulair 10 mg p.o. daily -Continue with Symbicort, DuoNebs 4 times daily and every 2 hours as needed -Strict I's and O's, daily weights -Wean down oxygen as tolerated -Continue telemetry -Pulmonology consulted, appreciate recommendations Hypothyroidism: Continue levothyroxine 75 mcg daily A-fib with RVR: Continue Coreg 12.5 twice daily, on Lovenox 40 mg subcu daily not on anticoagulation due to history of bleeding, patient unsure what type and aware. 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 DVT ppx: Lovenox Code status: DNR/DNI Anticipated discharge place: [facility] Anticipated discharge time: TBD Objective - Vital Signs Vital signs: Vital Signs Temp 97.7 F 02/17/25 13:26 Pulse 96 02/17/25 13:26 Resp 18 02/17/25 13:26 BP 95/66 02/17/25 13:26 Pulse Ox 95 02/17/25 13:26 FiO2 Intake & Output 02/16/25 02/17/25 02/17/25 18:59 06:59 18:59 Intake Total 236 540 520 Output Total 700 500 300 Balance -464 40 220 Weight 57.2 kg Intake: Oral 236 540 520 Output: Urine 700 500 300 Other: Voiding Method Toilet Toilet Toilet Diaper Bedside Commode Bedside Commode Diaper Diaper # Voids 1 # Bowel Movements 0 - Labs CBC & Chem 7: 02/15/25 06:45 02/15/25 06:45
--- NOTE | 2025-02-18 11:24 | P.PN ---
Subjective Progress Note Date: 02/18/25 This is an 84-year-old female patient with a known history of atrial fibrillation, congestive heart failure, oxygen dependent chronic obstructive pulmonary disease, former smoker. She presented here to the emergency room yesterday with a 2 to 3-day history of increasing shortness of breath, cough and congestion. No fever or chills. No nausea vomiting diarrhea. Cough is dry nonproductive. Mostly dyspnea with exertion. Chest x-ray reveals no evidence of an acute pulmonary disease. White count 4.9. Hemoglobin 11.0. Platelets 261. Sodium 144. Potassium 4.6. BUN 27. Creatinine 1.0. Glucose 148. Troponin negative x 1. proBNP 7950. She is seen today in consultation on the regular medical floor. She is currently sitting up in bed. Awake and alert in no acute distress. Maintaining O2 saturations in the 90s on 3 L/min per nasal cannula. She has been afebrile. Hemodynamically stable. The patient is seen today February 16, 2025 in follow-up on the regular medical floor. She is currently sitting up in bed. Awake and alert in no acute distress. Maintaining good O2 saturations in the high 90s on 2 L/min per nasal cannula. She denies any worsening shortness of breath, cough or congestion. She is maintained on DuoNeb inhalations, Symbicort, Singulair, prednisone taper. Lovenox for DVT prophylaxis. Remains on oral diuretics. No new labs today. The patient is seen today February 17, 2025 in follow-up on the regular medical floor. She is awake and alert in no acute distress. Sitting up in bed. Denies any worsening shortness of breath, cough or congestion. Maintaining O2 satu rations in the 90s on 4 L/min per nasal cannula. No new labs today. She remains on DuoNeb inhalations, Symbicort, prednisone taper. Remains on Singulair. Lovenox for DVT prophylaxis. Remains on oral diuretics. Currently in a negative balance. The patient is seen today February 18, 2025 in follow-up on the regular medical floor. She is currently sitting up in bed. Awake and alert in no acute dis tress. Maintaining good O2 saturations in the 90s on 4 L/min per nasal cannula. She remains on DuoNeb inhalations, Symbicort, Singulair and prednisone taper. Lovenox for DVT prophylaxis. Remains on oral diuretics. No new labs today. Objective - Vital Signs Vital signs: Vital Signs Temp 98 F 02/18/25 06:50 Pulse 96 02/18/25 08:44 Resp 22 02/18/25 06:50 BP 111/67 02/18/25 06:50 Pulse Ox 96 02/18/25 06:50 FiO2 Intake & Output 02/17/25 02/18/25 02/18/25 18:59 06:59 18:59 Intake Total 1291 180 Output Total 1250 Balance 41 180 Weight 57.7 kg Intake: Oral 1291 180 Output: Urine 1250 Other: Voiding Method Toilet Toilet Toilet Bedside Commode Bedside Commode Bedside Commode Diaper Diaper Diaper # Voids 2 - Exam GENERAL EXAM: Alert, pleasant 84-year-old female, on 4 L nasal cannula, sitting up in bed, in no apparent distress. HEAD: Normocephalic. EYES: Normal reaction of pupils, equal size. NOSE: Clear with pink turbinates. THROAT: No erythema or exudates. NECK: No masses, no JVD. CHEST: No chest wall deformity. LUNGS: Equal air entry with no crackles, wheeze, rhonchi or dullness. CVS: S1 and S2 normal with no audible murmur, regular rhythm. ABDOMEN: No hepatosplenomegaly, normal bowel sounds, no guarding or rigidity. SPINE: No scoliosis or deformity SKIN: No rashes CENTRAL NERVOUS SYSTEM: No focal deficits, tone is normal in all 4 extremities. EXTREMITIES: There is no peripheral edema. No clubbing, no cyanosis. Peripheral pulses are intact. - Labs CBC & Chem 7: 02/15/25 06:45 02/15/25 06:45 Assessment and Plan Assessment: Acute on chronic hypoxic respiratory failure secondary to an acute exacerbation of chronic obstructive pulmonary disease and acute exacerbation of systolic congestive heart failure History of oxygen dependent chronic obstructive pulmonary disease, maintained on Trelegy and oxygen at 3 L/min per nasal cannula Former smoker History of systolic congestive heart failure with an ejection fraction 20 to 25% Mild to moderate mitral regurgitation History of atrial fibrillation, not on anticoagulation Hypothyroidism Plan: The patient was seen and evaluated Chest x-ray and medications reviewed Remains on oral diuretics Stable on 4 L nasal cannula Cleared for discharge Continue her home oxygen Continue Trelegy Continue Singulair Continue albuterol HFA Complete a prednisone taper Follow-up in our office in 1 week This patient was seen independently by the pulmonary nurse practitioner addressing pulmonary issues I have personally seen and examined the patient, performed the documentation and the assessment and plan as written. Number of minutes spent on the visit: 23 Dictation was produced using [employer] dictation software. Please excuse any grammatical, word or spelling errors.
--- NOTE | 2025-02-18 13:19 | P.CRDCN ---
History of Present Illness Consult date: 02/18/25 Consult reason: congestive heart failure Chief complaint: shortness of breath History of present illness: History of present illness: Patient is a pleasant 84-year-old female with significant past medical history of atrial fibrillation, congestive heart failure, hypertension, COPD oxygen dependent, former smoker who presented for worsening shortness of breath. She says her breathing has been getting worse over the past 1 year. Over the past 2 to 3 days was more significant and therefore she came into the ER. She does follow with a md pediatric allergist at [place] however unable to recall name. She is a poor historian. She was seen 1 month ago at the hospital here and had workup including echocardiogram 01/10/2025 with a EF 20-25%, moderatesevere mitral regurgitation, severe tricuspid regurgitation, RVSP 60. Lexiscan stress test 01/15/2025 showed no reversible ischemia, EF 48%. BNP on this admission 7950. She states she does not take any anticoagulation due to history of bleeding. She denies any chest pain or pressure. Her shortness of breath is getting better with her nebulizer treatments. She does get tachycardic and dyspneic while on exerting herself to the bathroom. No swelling. REVIEW OF SYSTEMS: No fever or chills. No cough or expectoration. No diaphoresis. Patient denies headache, dizziness, blurred vision, double vision. Patient denies any stomach discomfort. No nausea, vomiting. No hematochezia. No hematemesis. Denies any black stools or blood in his stools. Denies dysuria or hematuria. No muscle weakness or numbness. No chest pain or pressure. Reports shortness of breath. PHYSICAL EXAMINATION: This is a 84-year-old female in no apparent distress at the time of my examination. HEENT: Head is atraumatic, normocephalic. Pupils are equal, round. Sclerae anicteric. Conjunctivae are clear. Mucous membranes of the mouth are moist. Neck is supple. There is no jugular venous distention. No carotid bruit is heard. CHEST EXAMINATION: Lungs are diminished, nasal cannula O2 3 L. She does appear dyspnic with conversation. No chest wall tenderness is noted on palpation or with deep breathing. HEART EXAMINATION: Heart irregular rate and rhythm. S1, S2 heard. No murmurs, gallops or rub. ABDOMEN: Soft, nontender. Bowel sounds are heard. EXTREMITIES: 2+ peripheral pulses with no evidence of peripheral edema and no calf tenderness noted. NEUROLOGIC EXAMINATION: Patient is awake, alert and oriented x3. Some confusion. IMPRESSION AND PLAN: A-fib, likely persistent Acute on chronic systolic heart failure Pulmonary hypertension Hypertension COPD, oxygen dependent Former smoker Dyspnea PLAN: Recommend increasing coreg to 25mg BID for better rate control, give extra 12.5mg x1 now. We discussed further eval with repeating ECHO and consider right and left heart cath. We discussed recommendation for Watchman device, consider outpatient. Request records from her primary md pediatric allergist at [place]. She does not want to stay and do further testing. She does appear stable for discharge. Close follow up with her primary md pediatric allergist. I am dictating on behalf of Dr. Puneet May's history/physical and assessment/plan. Past Medical History Past Medical History: Atrial Fibrillation, Heart Failure, COPD, Thyroid Disorder History of Any Multi-Drug Resistant Organisms: None Reported Past Surgical History: No Surgical Hx Reported Past Psychological History: No Psychological Hx Reported Smoking Status: Former smoker Past Alcohol Use History: None Reported Past Drug Use History: None Reported Medications and Allergies Home Medications Medication Instructions Recorded Confirmed Type Albuterol Inhaler [Ventolin Hfa 2 puff INHALATION RT-QID PRN 01/10/25 02/14/25 History Inhaler] Fluticasone/Umeclidin/Vilanter 1 puff INHALATION RT-DAILY 01/10/25 02/14/25 History [Trelegy Ellipta 200-62.5-25] Levothyroxine Sodium [Synthroid] 75 mcg PO DAILY 01/10/25 02/14/25 History Mirtazapine 15 mg PO BID 01/10/25 02/14/25 History Montelukast [Singulair] 10 mg PO DAILY 01/10/25 02/14/25 History carvediloL [Coreg] 12.5 mg PO BID 01/10/25 02/14/25 History lisinopriL 2.5 mg PO DAILY 01/10/25 02/14/25 History Acetaminophen Tab [Tylenol] 650 mg PO Q6HR PRN tab 01/15/25 02/14/25 Rx Furosemide [Lasix] 40 mg PO BID #6 tab 02/16/25 Rx predniSONE See Taper PO DIRECTED #30 tab 02/16/25 Rx Allergies Allergy/AdvReac Type Severity Reaction Status Date / Time aspirin Allergy Unknown Verified 01/10/25 11:23 diltiazem Allergy Swelling Verified 01/10/25 11:23 ezetimibe [From Zetia] Allergy Unknown Verified 01/10/25 11:23 metoprolol Allergy Swelling Verified 01/10/25 11:23 Penicillins Allergy Rash/Hives Verified 01/10/25 11:23 codeine AdvReac drowsiness/ Verified 01/10/25 11:23 nausea/vomi ting propoxyphene AdvReac drowsiness/ Verified 01/10/25 11:23 nausea/vomi ting [id number] Reductase AdvReac syncope Verified 01/10/25 11:23 Inhibitor Physical Exam Vitals: Vital Signs Temp Pulse Pulse Resp BP BP Pulse Ox 02/18/25 08:44 96 02/18/25 08:30 104 H 02/18/25 06:50 98 F 102 H 22 111/67 96 02/18/25 05:55 132/90 02/17/25 20:38 108 H 16 02/17/25 19:00 97.4 F L 108 H 16 112/58 96 02/17/25 18:38 120 H 02/17/25 18:26 120 H 02/17/25 18:12 83 18 103/72 95 02/17/25 15:44 100 02/17/25 15:27 100 02/17/25 13:26 97.7 F 96 18 95/66 95 02/17/25 12:00 92 02/17/25 11:50 96 Intake and Output 02/17/25 02/18/25 02/18/25 22:59 06:59 14:59 Intake Total 771 180 Output Total 950 Balance -179 180 Intake: Oral 771 180 Output: Urine 950 Other: Voiding Method Toilet Toilet Bedside Commode Bedside Commode Diaper Diaper # Voids 2 Weight 57.7 kg Results 02/15/25 06:45 02/15/25 06:45 Current Medications Generic Name Dose Route Start Last Admin Trade Name Freq PRN Reason Stop Dose Admin Albuterol Sulfate 2.5 mg 02/14/25 17:18 Albuterol Nebulized 2.5 Mg/3 Ml INHALATION RT-QID PRN Shortness Of Breath Albuterol/Ipratropium 3 ml 02/14/25 20:00 02/18/25 08:30 Ipratropium-Albuterol 3 Ml Neb INHALATION 3 ml RT-QID TONY Administration Albuterol/Ipratropium 3 ml 02/14/25 16:56 Ipratropium-Albuterol 3 Ml Neb INHALATION RT-Q2H PRN Shortness Of Breath Or Wheezing Budesonide/Formoterol Fumarate 2 puff 02/15/25 08:00 02/18/25 08:30 Symbicort 160-4.5 Mcg Inhaler INHALATION 2 puff RT-BID TONY Administration Carvedilol 12.5 mg 02/14/25 21:00 02/18/25 05:54 Carvedilol 12.5 Mg Tab PO 12.5 mg BID-W/MEALS TONY Administration Enoxaparin Sodium 40 mg 02/15/25 09:00 02/18/25 07:59 Enoxaparin 40 Mg/0.4 Ml Syringe SQ Not Given DAILY TONY Furosemide 40 mg 02/16/25 21:00 02/18/25 08:05 Furosemide 40 Mg Tab PO 40 mg BID TONY Administration Levothyroxine Sodium 75 mcg 02/15/25 06:30 02/18/25 05:54 Levothyroxine 75 Mcg Tab PO 75 mcg 0630 TONY Administration Lisinopril 2.5 mg 02/15/25 09:00 02/18/25 08:05 Lisinopril 2.5 Mg Tab PO 2.5 mg DAILY TONY Administration Mirtazapine 15 mg 02/14/25 21:00 02/18/25 08:05 Mirtazapine 15 Mg Tab PO 15 mg BID TONY Administration Montelukast Sodium 10 mg 02/15/25 09:00 02/18/25 08:05 Montelukast 10 Mg Tab PO 10 mg DAILY TONY Administration Naloxone HCl 0.2 mg 02/14/25 16:56 Naloxone 0.4 Mg/Ml 1 Ml Vial IVP Q2M PRN Opioid Reversal Prednisone 50 mg 02/15/25 09:00 02/18/25 08:05 Prednisone 50 Mg Tab PO 50 mg DAILY TONY Administration Intake and Output 02/17/25 02/18/25 02/18/25 22:59 06:59 14:59 Intake Total 771 180 Output Total 950 Balance -179 180 Intake: Oral 771 180 Output: Urine 950 Other: Voiding Method Toilet Toilet Bedside Commode Bedside Commode Diaper Diaper # Voids 2 Weight 57.7 kg 02/15/25 06:45 02/15/25 06:45
--- NOTE | 2025-02-18 13:52 | P.PN ---
Subjective Progress Note Date: 02/18/25 Hospital Course: Patient is a 84-year-old female with medical history of chronic hypoxic respir atory failure secondary to COPD on home oxygen 3L, HFrEF EF 20 to 25%, severe pulmonary hypertension, moderate to severe MR, severe TR, persistent A-fib, history of hypothyroidism, who presented to the ER on 02/14/2025 with shortness of breath. Symptoms started earlier this morning, she does have chronic orthopnea that is worse today, denies associated lower extremity swelling, no wheezing however she noted that she never has wheezes, denies chest pain, abdominal pain, dysuria Of note, patient had a recent admission on early January 2025 for multifactorial acute on chronic hypoxic respiratory failure secondary to COPD, A-fib RVR, CHF exacerbation. She underwent extensive workup in the ER. Afebrile on admission, heart rate in 90s, was initially placed on 4 L, was still hypoxic at 87, oxygen flow increased to 6 L. Blood work significant for normal WBC count, stable hemoglobin 11.3, normal platelet count, sodium and potassium WNL, bicarb 35, creatinine 0.93, glucose 181, bilirubin 1.7, normal AST, ALT, troponin negative, BNP 7950, up from 4428 last admission. Chest x-ray read by cardiology is unremarkable, however, on my interpretation appears as pulmonary vascular congestion. Patient evaluated for acute on chronic hypoxic respiratory failure secondary to COPD and CHF exacerbation. EKG showed A-fib with RVR 107, QTc 384. Nonspecific ST and T wave abnormalities. Patient was admitted for management of hypoxic respiratory failure. 02/16/2025: Patient was seen examined at bedside, no acute events overnight, patient felt that she is getting ready for discharge, she still was getting short of breath on exertion. Her saturation is now going on home oxygen level of 3 L. I was later notified that patient went into A-fib with RVR with heart rate in 120s 130s and blood pressure being soft 90s over 60s, patient was asymptomatic and feeling well. She then had an episode of shortness of breath after having a bowel movement, desatted to 80s with heart rate been in the 160s, feeling anxious, she recovered fast with heart rate coming down to 110s and blood pressure improving to 120s over 70s, back to home oxygen level. We will hold on discharge for now, patient will be maintained on oral Lasix 40 twice daily which is increased dose from 40 daily. Will keep patient on telemetry. Of note, she is not on anticoagulation due to bleeding unsure what type and where, reportedly unable to tolerate anticoagulation.. All of the above was communicated with patient's RN 02/17: Seen examined at bedside, no acute events overnight, patient is on home oxygen 3 L, blood pressure improved. Heart rate was controlled. Patient states that she still gets very short of breath with minimal activity. Review of prior cardiology note, patient does have shortness of breath with minimal exertion baseline, however, patient states that it feels worse. Repeat x-ray showed mild pulmonary congestion. Due to advanced heart failure and ongoing worsening dyspnea, will consult cardiology. Due to soft blood pressure, will continue with oral Lasix 40 twice daily. discussed with RN 02/18: Seen examined at bedside, discussed with RN, patient's heart rate goes up to 120 with minimal exertion, she gets short of breath with minimal exertion, had episode of sundowning overnight when the family had to come in and calm her down. She was actually dressed up on my evaluation, she states that she was never told that she has COPD and CHF, appears to be confused, insists on being discharged however he is very cooperative. She is afebrile, heart rate in 100s, SpO2 above 90s on 4 L. Blood work pending. Cleared from pulmonary standpoint, cardiology evaluation pending. Pertinent positives and negatives as discussed above, a complete review of systems was performed and all other systems are negative. Vitals Signs Reviewed. General: [nontoxic], [no distress], [appears at stated age] Derm: [warm], [dry] Head: [atraumatic], [normocephalic], [symmetric] Eyes: [EOMI], [no lid lag], [anicteric sclera] Mouth: [no lip lesion], [mucus membranes moist] Cardiovascular: [S1S2 irreg], [no murmur] Lungs: [Diminished bilateral breath, bibasilar crackles, no wheeze, no accessory muscle use Abdominal: [soft], [ nontender to palpation], [no guarding], [no appreciable organomegaly] Ext: [no gross muscle atrophy], [no edema], [no contractures] Neuro: [ CN II-XI grossly intact], [no focal neuro deficits] Psych: [Alert], [confused Assessment and Plan: Acute on chronic hypoxic respiratory failure, multifactorial, secondary to COPD exacerbation and HFrEF exacerbation Acute metabolic encephalopathy, possible hospital-acquired delirium likely secondary to above Severe pulmonary hypertension moderate to severe MR, severe TR, - Continue with oral Lasix 40 twice daily -Repeat x-ray as above -Cardiology, appreciate recommendations -continue lisinopril 2.5 mg daily, Coreg 12.5 p.o. twice daily -She is not on GDMT at this time, previously was on Farxiga, will need to follow-up with cardiology -Continue with prednisone 40 mg daily -Continue Singulair 10 mg p.o. daily -Continue with Symbicort, DuoNebs 4 times daily and every 2 hours as needed -Strict I's and O's, daily weights -Consult PT OT -Wean down oxygen as tolerated -Continue telemetry -Pulmonology consulted, appreciate recommendations Hypothyroidism: Continue levothyroxine 75 mcg daily A-fib with RVR: Continue Coreg 12.5 twice daily, on Lovenox 40 mg subcu daily not on anticoagulation due to history of bleeding, patient unsure what type and aware. Needs to be further discussed with her primary auditor in charge. DVT ppx: Lovenox Code status: DNR/DNI Anticipated discharge place: TBD Anticipated discharge time: TBD Objective - Vital Signs Vital signs: Vital Signs Temp 98 F 02/18/25 06:50 Pulse 100 02/18/25 11:51 Resp 22 02/18/25 06:50 BP 111/67 02/18/25 06:50 Pulse Ox 96 02/18/25 06:50 FiO2 Intake & Output 02/17/25 02/18/25 02/18/25 18:59 06:59 18:59 Intake Total 1291 180 Output Total 1250 Balance 41 180 Weight 57.7 kg Intake: Oral 1291 180 Output: Urine 1250 Other: Voiding Method Toilet Toilet Toilet Bedside Commode Bedside Commode Bedside Commode Diaper Diaper Diaper # Voids 2 - Labs CBC & Chem 7: 02/15/25 06:45 02/15/25 06:45
[2025-02-18 14:37] LABS: Basophils # (A) 0.05 10*3/uL (0.00-0.10); Basophils % (A) 0.5 %; Eosinophils # (A) 0.00 10*3/uL (0.04-0.35); Eosinophils % (A) 0.0 %; HCT 36.0 % (37.2-46.3); HGB 11.6 g/dL (12.0-15.0); Lymphocytes # (A) 0.69 10*3/uL (0.90-5.00); Lymphocytes % (A) 7.4 %; MCH 31.8 pg (27.0-32.0); MCHC 32.2 g/dL (32.0-37.0); MCV 98.6 fL (80.0-97.0); Monocytes # (A) 0.14 10*3/uL (0.20-1.00); Monocytes % (A) 1.5 %; Neutrophils # (A) 7.93 10*3/uL (1.80-7.70); Neutrophils % (A) 84.6 %; Platelet Count 258 10*3/uL (140-440); RBC 3.65 10*6/uL (4.10-5.20); RDW 14.4 % (11.5-14.5); WBC 9.37 10*3/uL (4.50-10.00)
[2025-02-18 14:38] LABS: African American GFR (CKD) 63 (>60 ml/min/1.73 sqM); Anion Gap 9 mmol/L; Blood Urea Nitrogen 35 mg/dL (7-17); Calcium 9.1 mg/dL (8.4-10.2); Carbon Dioxide 38 mmol/L (22-30); Chloride 91 mmol/L (98-107); Glucose 266 mg/dL (74-99); Non-African American GFR(CKD) 55 (>60 ml/min/1.73 sqM); Potassium 4.3 mmol/L (3.5-5.1); Sodium 138 mmol/L (137-145)
[2025-02-18 15:06] LABS: Lymphocytes # (M) 0.84 k/uL (1.0-4.8); Metamyelocytes # (M) 0.09 k/uL (0); Monocytes # (M) 0.19 k/uL (0-1.0); Myelocytes # (M) 0.09 k/uL (0); Neutrophils # (M) 8.15 k/uL (1.3-7.7); Neutrophils % (M) 87 %; Total Cells Counted 100
[2025-02-19 07:24] VITALS: BP 119/77; RESP 18; TEMP 97.8
[2025-02-19 08:23] LABS: HCT 36.8 % (37.2-46.3); HGB 11.4 g/dL (12.0-15.0); MCH 30.8 pg (27.0-32.0); MCHC 31.0 g/dL (32.0-37.0); MCV 99.5 FL (80.0-97.0); NRBC Per 100 WBC 0.03 X 10*3/uL (0.00-0.01); Platelet Count 229 X 10*3/uL (140-440); RBC 3.70 X 10*6/uL (4.10-5.20); RDW 14.3 % (11.5-14.5); WBC 10.22 X 10*3/uL (4.50-10.00)
[2025-02-19 08:35] LABS: Anion Gap 11.30 mmol/L (4.00-12.00); BUN/Creat Ratio 35.44 Ratio (12.00-20.00); Blood Urea Nitrogen 31.9 mg/dL (9.0-27.0); Calcium 8.9 mg/dL (8.7-10.3); Carbon Dioxide 34.7 mmol/L (21.6-31.8); Chloride 96 mmol/L (96-109); Glucose 88 mg/dL (70-110); Potassium 4.2 mmol/L (3.5-5.5); Sodium 142 mmol/L (135-145)
[2025-02-19 08:51] VITALS: PULSE 92
--- NOTE | 2025-02-19 09:46 | P.PN ---
Subjective Progress Note Date: 02/19/25 Consult reason: congestive heart failure Chief complaint: shortness of breath History of present illness: History of present illness: Patient is a pleasant 84-year-old female with significant past medical history of atrial fibrillation, congestive heart failure, hypertension, COPD oxygen dependent, former smoker who presented for worsening shortness of breath. She says her breathing has been getting worse over the past 1 year. Over the past 2 to 3 days was more significant and therefore she came into the ER. She does fol low with a plug shaper hand at [place] however unable to recall name. She is a poor historian. She was seen 1 month ago at the hospital here and had workup including echocardiogram 01/10/2025 with a EF 20-25%, moderatesevere mitral regurgitation, severe tricuspid regurgitation, RVSP 60. Lexiscan stress test 01/15/2025 showed no reversible ischemia, EF 48%. BNP on this admission 7950. She states she does not take any anticoagulation due to history of bleeding. She denies any chest pain or pressure. Her shortness of breath is getting better with her nebulizer treatments. She does get tachycardic and dyspneic while on exerting herself to the bathroom. No swelling. 02/19/2025 Patient seen and examined. Patient states that her breathing is about the same as yesterday. She remains in atrial fibrillation with controlled rate occasional PVCs. Blood pressure 119/77, pulse ox 99% on 4 L nasal cannula. Blood work reveals hemoglobin 11.4, creatinine 0.9, potassium 4.2. TSH 1.03. PHYSICAL EXAMINATION: This is a 84-year-old female in no apparent distress at the time of my examination. HEENT: Head is atraumatic, normocephalic. Pupils are equal, round. Sclerae anicteric. Conjunctivae are clear. Mucous membranes of the mouth are moist. Neck is supple. There is no jugular venous distention. No carotid bruit is heard. CHEST EXAMINATION: Lungs are diminished, nasal cannula O2 3 L. She does appear dyspnic with conversation. No chest wall tenderness is noted on palpation or with deep breathing. HEART EXAMINATION: Heart irregular rate and rhythm. S1, S2 heard. No murmurs, gallops or rub. ABDOMEN: Soft, nontender. Bowel sounds are heard. EXTREMITIES: 2+ peripheral pulses with no evidence of peripheral edema and no calf tenderness noted. NEUROLOGIC EXAMINATION: Patient is awake, alert and oriented x3. Some confusion. IMPRESSION AND PLAN: A-fib, likely persistent Acute on chronic systolic heart failure Pulmonary hypertension Hypertension COPD, oxygen dependent Former smoker Dyspnea PLAN: Continue increased dose of Coreg 25 mg twice daily Patient is not on anticoagulation due to history of bleeding Recommend the patient follow-up with Dr. May Cancel echocardiogram and this can be performed in the office She is cleared for discharge from cardiology. Nurse practitioner note has been reviewed, I agree with documented findings and plan of care. Patient was seen and examined. Objective - Vital Signs Vital signs: Vital Signs Temp 97.8 F 02/19/25 07:23 Pulse 80 02/19/25 07:23 Resp 18 02/19/25 07:23 BP 119/77 02/19/25 07:23 Pulse Ox 99 02/19/25 07:23 FiO2 Intake & Output 02/18/25 02/19/25 02/19/25 18:59 06:59 18:59 Intake Total 430 Output Total 400 300 Balance 30 -300 Weight 57.3 kg Intake: Oral 430 Output: Urine 400 300 Other: Voiding Method Toilet Toilet Bedside Commode Bedside Commode Diaper Diaper - Labs CBC & Chem 7: 02/19/25 05:19 02/19/25 05:19 Labs: Abnormal Lab Results - Last 24 Hours (Table) 02/18/25 02/18/25 Range/Units 14:13 14:13 RBC 3.65 L (4.10-5.20) 10*6/uL Hgb 11.6 L (12.0-15.0) g/dL Hct 36.0 L (37.2-46.3) % MCV 98.6 H (80.0-97.0) fL Immature Gran # 0.56 H (0.00-0.04) 10*3/uL Neutrophils # 7.93 H (1.80-7.70) 10*3/uL Neutrophils # (Manual) 8.15 H (1.3-7.7) k/uL Lymphocytes # 0.69 L (0.90-5.00) 10*3/uL Lymphocytes # (Manual) 0.84 L (1.0-4.8) k/uL Monocytes # 0.14 L (0.20-1.00) 10*3/uL Eosinophils # 0.00 L (0.04-0.35) 10*3/uL Metamyelocytes # (Man) 0.09 H (0) k/uL Myelocytes # (Manual) 0.09 H (0) k/uL Chloride 91 L (98-107) mmol/L Carbon Dioxide 38 H (22-30) mmol/L BUN 35 H (7-17) mg/dL Glucose 266 H (74-99) mg/dL
[2025-02-19 10:04] LABS: Basophils # (M) 0 X 10*3/uL (0.00-0.10); Eosinophils # (M) 0 X 10*3/uL (0.04-0.35); Lymphocytes # (M) 1.74 X 10*3/uL (0.90-5.00); Monocytes # (M) 1.53 X 10*3/uL (0.20-1.00); Neutrophils # (M) 6.95 X 10*3/uL (1.80-7.70); Neutrophils % (M) 68 %; Toxic Vacuolation 2+ (None Seen)
--- NOTE | 2025-02-19 12:24 | P.DS ---
Providers Date of admission: 02/14/25 16:57 Expected date of discharge: 02/19/25 Attending physician: Elvira Doshi MD Consults: 02/14/25 16:56 Consult Physician Routine Consulting Provider: Chad Barton Consult Reason/Comments: bhumi Do you want consulting provider notified?: Yes 02/17/25 14:15 Consult Physician Routine Consulting Provider: Tadeo August Consult Reason/Comments: HFrEF, worsening dyspnea Do you want consulting provider notified?: Yes Primary care physician: Physician Nonstaff Hospital Course: 84-year-old female with medical history of chronic hypoxic respiratory failure secondary to COPD on home oxygen 3L, HFrEF EF 20 to 25%, severe pulmonary hypertension, moderate to severe MR, severe TR, persistent A-fib, history of hypothyroidism, who presented to the ER on 02/14/2025 with shortness of breath. Of note, patient had a recent admission on early January 2025 for multifactorial acute on chronic hypoxic respiratory failure secondary to COPD, A-fib RVR, CHF exacerbation. She underwent extensive workup in the ER. BP 99/61, HR 114, RR 22, T 98.2F, 83% on 3L NC. CBC, Coag panel, CMP significant for RBC 3.54, Hg 11.2, Hct 34.7, MCV 98, bicarb 35, glu 181, T. Bili 1.7. DDimer 1.7. Trop < 0.012. BNP 7950. CXR showing pulmonary vascular congestion. EKG Patient evaluated for acute on chronic hypoxic respiratory failure secondary to COPD and CHF exacerbation. Pulmonary and Cardiology consulted. Started on bronchodilators and steroids, Lasix increased to BID dosing. Pulmonary recommended steroid taper and cleared the patient. Cardiology increased her Coreg to 25 mg PO BID and cancelled the Echo that was ordered recommending outpatient follow up. 02/19 Patient was seen and examined. She reports stable breathing still feeling SOB on exertion. CBC and BMP significant for WBC 10.22, RBC 3.7, Hg 11.4, Hct 36.8, MCV 99.5, bicarb 34.7, BUN 31.9. TSH 1.03. General: non toxic, no distress Derm: warm, dry Head: atraumatic, normocephalic, symmetric Eyes: EOMI, no lid lag, anicteric sclera Mouth: no lip lesion, mucus membranes moist Cardiovascular: S1S2 irreg, no murmur Lungs: Decreased BS bilateral, no rhonchi, no rales, no accessory muscle use Ext: no gross muscle atrophy, no edema, no contractures Psych: AO x 3 Discharge Diagnosis: Acute on chronic hypoxic respiratory failure, multifactorial, secondary to COPD exacerbation and HFrEF exacerbation Atrial fibrillation with RVR, not on AC due to history of bleed Acute metabolic encephalopathy, possible hospital-acquired delirium likely secondary to above Elevated D-Dimer, age adjusted 0.83, unlikely VTE Severe pulmonary hypertension Mild-Mod MR Hypothyroidism This complex discharge took 35 minutes to complete. Patient Condition at Discharge: Stable Plan - Discharge Summary Discharge Rx Participant: No New Discharge Prescriptions: New carvediloL [Coreg*] 25 mg PO BID-W/MEALS #120 tab predniSONE See Taper PO DIRECTED #30 tab Continue lisinopriL 2.5 mg PO DAILY Montelukast [Singulair] 10 mg PO DAILY Mirtazapine 15 mg PO BID Levothyroxine Sodium [Synthroid] 75 mcg PO DAILY Fluticasone/Umeclidin/Vilanter [Trelegy Ellipta 200-62.5-25] 1 puff INHALATION RT-DAILY Acetaminophen Tab [Tylenol] 650 mg PO Q6HR PRN tab PRN Reason: Mild Pain Or Fever > 100.5 Albuterol Inhaler [Ventolin Hfa Inhaler] 2 puff INHALATION RT-QID PRN PRN Reason: Shortness Of Breath Changed Furosemide [Lasix] 40 mg PO BID #6 tab Discontinued carvediloL [Coreg] 12.5 mg PO BID Discharge Medication List Albuterol Inhaler [Ventolin Hfa Inhaler] 2 puff INHALATION RT-QID PRN 01/10/25 [History] Fluticasone/Umeclidin/Vilanter [Trelegy Ellipta 200-62.5-25] 1 puff INHALATION RT-DAILY 01/10/25 [History] Levothyroxine Sodium [Synthroid] 75 mcg PO DAILY 01/10/25 [History] Mirtazapine 15 mg PO BID 01/10/25 [History] Montelukast [Singulair] 10 mg PO DAILY 01/10/25 [History] lisinopriL 2.5 mg PO DAILY 01/10/25 [History] Acetaminophen Tab [Tylenol] 650 mg PO Q6HR PRN tab 01/15/25 [Rx] Furosemide [Lasix] 40 mg PO BID #6 tab 02/16/25 [Rx] predniSONE See Taper PO DIRECTED #30 tab 02/16/25 [Rx] carvediloL [Coreg*] 25 mg PO BID-W/MEALS #120 tab 02/19/25 [Rx] Follow up Appointment(s)/Referral(s): Chad Barton MD [STAFF PHYSICIAN] - 1 Week Puneet May DO [STAFF PHYSICIAN] - 1 Week (Office will call patient with appointment ) Tootie Knott DO [REFERRING] - As Needed [facility], [NON-STAFF] - As Needed Nonstaff,Physician [Primary Care Provider] - 1-2 days Patient Instructions/Handouts: COPD (Chronic Obstructive Pulmonary Disease) (DC), Pulmonary Rehabilitation (GEN) Activity/Diet/Wound Care/Special Instructions: Please, follow-up with your primary care physician, printed circuit designer. Discuss pulmonary rehab options Please, watch your salt intake, weight yourself daily and keep log of the readings, monitor your blood pressure regularly, and discuss your numbers with primary care physician, your kindergarten paraprofessional. Salt restriction is 2 g/day. Avoid fast food, frozen meals, canned food discuss blood thinner initiation for your afib Checking Yourself at Home Weigh yourself every morning on the same scale when you get up -- before you eat but after you use the bathroom. Make sure you are wearing similar clothing each time you weigh yourself. Write down your weight every day on a chart so that you can keep track of it. Throughout the day, ask yourself: Is my energy level normal? Do I get more short of breath when I am doing my everyday activities? Are my clothes or shoes feeling tight? Are my ankles or legs swelling? Am I coughing more often? Does my cough sound wet? Do I get short of breath at night or when I lie down? If you are having new (or different) symptoms, ask yourself: Did I eat something different than usual or try a new food? Did I take all of my medicines the right way at the right times? Diet and Fluids Your health care provider may ask you to limit how much you drink. When your heart failure is not very severe, you may not have to limit your fluids too much. As your heart failure gets worse, you may be asked to limit fluids to 6 to 9 cups (1.5 to 2 liters) a day. You will need to eat less salt. Salt can make you thirsty, and being thirsty can cause you to drink too much fluid. Extra salt also makes fluid stay in your body. Lots of foods that do not taste salty, or that you do not add salt to, still contain a lot of salt. You may need to take a diuretic, or water pill. Do not drink alcohol. Alcohol makes it harder for your heart muscles to work. Ask your provider what to do on special occasions where alcohol and foods you are trying to avoid will be served. If you smoke, stop. Ask for help quitting if you need it. Do not let anybody smoke in your home. Learn more about what you should eat to make your heart and blood vessels healthier. Avoid fatty foods. Stay away from fast-food restaurants. Avoid some prepared and frozen foods. Learn fast food tips. Try to stay away from things that are stressful for you. If you feel stressed all the time, or if you are very sad, talk with your provider who can refer you to a counselor. Taking Your Heart Drugs Have your entire medicine prescriptions filled before you go home. It is very important that you take your medicines the way your provider told you to. Do not take any other medicines or herbs without asking your provider about them first. Take your medicines with water. Do not take them with grapefruit juice, since it may change how your body absorbs certain medicines. Ask your provider or pharmacist if this will be a problem for you. The medicines below are given to many people who have heart failure. Sometimes there is a reason they may not be safe to take, though. These medicines may help protect your heart. Talk with your provider if you are not already on any of these medicines: Antiplatelet medicines (blood thinners) such as aspirin or clopidogrel (Plavix) to help keep your blood from clotting Anticoagulant medicines (blood thinners) such as warfarin (Coumadin) to help keep your blood from clotting Beta baljit and ALFREDA inhibitor medicines as well as other medicines to lower your blood pressure and treat the heart muscle Statins or other medicines to lower your cholesterol Talk to your provider before changing the way you take your medicines. Never just stop taking these medicines for your heart, or any medicines you may be taking for diabetes, high blood pressure, or other medical conditions you have. If you are taking a blood thinner, such as warfarin (Coumadin), you will need to have extra blood tests to make sure your dose is correct. Some other blood thinners do not require this. Activity Your provider may refer you to a cardiac rehabilitation program. There, you will learn how to slowly increase your exercise and how to take care of your heart disease. Make sure you avoid heavy lifting. Make sure you know the warning signs of heart failure and of a heart attack. Know what to do when you have chest pain, or angina. Always ask your provider before starting sexual activity again. Do not take sildenafil (Viagra), or vardenafil (Levitra), tadalafil (Cialis), or any herbal remedy for erection problems without checking first. Make sure your home is set up to be safe and easy for you for you to move around in and avoid falls. If you are unable to walk around very much, ask your provider for exercises you can do while you are sitting. Follow-up You may also need a pneumococcal vaccine (pneumonia shot). Ask your provider about this. Your provider may call you to see how you are doing and to make sure you are checking your weight and taking your medicines. You will need follow-up appointments at your provider's office. You will likely need to have certain lab tests to check your sodium and potassium levels and monitor how your kidneys are working. When to Call the Doctor Contact your provider if: You gain more than 2 pounds (lb) (1 kilogram, kg) in a day, or 5 lb (2 kg) in a week. You are very tired and weak. You are dizzy and lightheaded. You are more short of breath when you are doing your normal activities. You have new shortness of breath when you are sitting. You need to sit up or use more pillows at night because you are short of breath when you are lying down. You wake up 1 to 2 hours after falling asleep because you are short of breath. You are wheezing and having trouble breathing. You feel pain or pressure in your chest. You have a cough that does not go away. It may be dry and hacking, or it may sound wet and bring up pink, foamy spit. Your have swelling in your feet, ankles or legs. You have to urinate a lot, particularly at night. You have stomach pain or tenderness. You have symptoms that you think may be from your medicines. Your pulse, or heartbeat, gets very slow or very fast, or it is not steady. Discharge Disposition: HOME SELF-CARE
--- NOTE | 2025-02-19 13:17 | P.PN ---
Subjective Progress Note Date: 02/19/25 This is an 84-year-old female patient with a known history of atrial fibrillation, congestive heart failure, oxygen dependent chronic obstructive pulmonary disease, former smoker. She presented here to the emergency room yesterday with a 2 to 3-day history of increasing shortness of breath, cough and congestion. No fever or chills. No nausea vomiting diarrhea. Cough is dry nonproductive. Mostly dyspnea with exertion. Chest x-ray reveals no evidence of an acute pulmonary disease. White count 4.9. Hemoglobin 11.0. Platelets 261. Sodium 144. Potassium 4.6. BUN 27. Creatinine 1.0. Glucose 148. Troponin negative x 1. proBNP 7950. She is seen today in consultation on the regular medical floor. She is currently sitting up in bed. Awake and alert in no acute distress. Maintaining O2 saturations in the 90s on 3 L/min per nasal cannula. She has been afebrile. Hemodynamically stable. The patient is seen today February 16, 2025 in follow-up on the regular medical floor. She is currently sitting up in bed. Awake and alert in no acute distress. Maintaining good O2 saturations in the high 90s on 2 L/min per nasal cannula. She denies any worsening shortness of breath, cough or congestion. She is maintained on DuoNeb inhalations, Symbicort, Singulair, prednisone taper. Lovenox for DVT prophylaxis. Remains on oral diuretics. No new labs today. The patient is seen today February 17, 2025 in follow-up on the regular medical floor. She is awake and alert in no acute distress. Sitting up in bed. Denies any worsening shortness of breath, cough or congestion. Maintaining O2 satu rations in the 90s on 4 L/min per nasal cannula. No new labs today. She remains on DuoNeb inhalations, Symbicort, prednisone taper. Remains on Singulair. Lovenox for DVT prophylaxis. Remains on oral diuretics. Currently in a negative balance. The patient is seen today February 18, 2025 in follow-up on the regular medical floor. She is currently sitting up in bed. Awake and alert in no acute dis tress. Maintaining good O2 saturations in the 90s on 4 L/min per nasal cannula. She remains on DuoNeb inhalations, Symbicort, Singulair and prednisone taper. Lovenox for DVT prophylaxis. Remains on oral diuretics. No new labs today. The patient is seen today February 19, 2025 in follow-up on the regular medical floor. She is awake and alert in no acute distress. Maintaining good O2 saturations in the 90s on 4 L/min per nasal cannula. She denies any worsening shortness of breath, cough or congestion. She is feeling back to her baseline. She remains on DuoNeb inhalations, Symbicort, Singulair and a prednisone taper. Lovenox for DVT prophylaxis. Remains on diuretics. White count 10.2. Hemoglobin 11.4. Platelets 229. Sodium 142. Potassium 4.2. Bicarb 35. BUN 32. Creatinine 0.9. Glucose 88. TSH 1.030. Objective - Vital Signs Vital signs: Vital Signs Temp 97.8 F 02/19/25 07:23 Pulse 92 02/19/25 08:50 Resp 18 02/19/25 07:23 BP 119/77 02/19/25 07:23 Pulse Ox 99 02/19/25 07:23 FiO2 Intake & Output 02/18/25 02/19/25 02/19/25 18:59 06:59 18:59 Intake Total 430 Output Total 400 300 Balance 30 -300 Weight 57.3 kg Intake: Oral 430 Output: Urine 400 300 Other: Voiding Method Toilet Toilet Toilet Bedside Commode Bedside Commode Bedside Commode Diaper Diaper Diaper - Exam GENERAL EXAM: Alert, 84-year-old female, sitting up in bed, on 4 L nasal cannula, sitting up in bed, in no apparent distress. HEAD: Normocephalic. EYES: Normal reaction of pupils, equal size. NOSE: Clear with pink turbinates. THROAT: No erythema or exudates. NECK: No masses, no JVD. CHEST: No chest wall deformity. LUNGS: Equal air entry with no crackles, wheeze, rhonchi or dullness. CVS: S1 and S2 normal with no audible murmur, regular rhythm. ABDOMEN: No hepatosplenomegaly, normal bowel sounds, no guarding or rigidity. SPINE: No scoliosis or deformity SKIN: No rashes CENTRAL NERVOUS SYSTEM: No focal deficits, tone is normal in all 4 extremities. EXTREMITIES: There is no peripheral edema. No clubbing, no cyanosis. Peripheral pulses are intact. - Labs CBC & Chem 7: 02/19/25 05:19 02/19/25 05:19 Labs: Abnormal Lab Results - Last 24 Hours (Table) 02/18/25 02/18/25 02/19/25 Range/Units 14:13 14:13 05:19 WBC 10.22 H (4.50-10.00) X 10*3/uL RBC 3.65 L 3.70 L (4.10-5.20) 10*6/uL Hgb 11.6 L 11.4 L (12.0-15.0) g/dL Hct 36.0 L 36.8 L (37.2-46.3) % MCV 98.6 H 99.5 H (80.0-97.0) fL MCHC 31.0 L (32.0-37.0) g/dL Immature Gran # 0.56 H (0.00-0.04) 10*3/uL Neutrophils # 7.93 H (1.80-7.70) 10*3/uL Neutrophils # (Manual) 8.15 H (1.3-7.7) k/uL Lymphocytes # 0.69 L (0.90-5.00) 10*3/uL Lymphocytes # (Manual) 0.84 L (1.0-4.8) k/uL Monocytes # 0.14 L (0.20-1.00) 10*3/uL Monocytes # (Manual) 1.53 H (0.20-1.00) X 10*3/uL Eosinophils # 0.00 L (0.04-0.35) 10*3/uL Eosinophils # (Manual) 0 L (0.04-0.35) X 10*3/uL Metamyelocytes # (Man) 0.09 H (0) k/uL Myelocytes # (Manual) 0.09 H (0) k/uL NRBC/100 WBC Diff 0.03 H (0.00-0.01) X 10*3/uL Toxic Vacuolation 2+ A (None Seen) Chloride 91 L (98-107) mmol/L Carbon Dioxide 38 H (22-30) mmol/L BUN 35 H (7-17) mg/dL BUN/Creatinine Ratio (12.00-20.00) Ratio Glucose 266 H (74-99) mg/dL 07/07/25 Range/Units 05:19 WBC (4.50-10.00) X 10*3/uL RBC (4.10-5.20) 10*6/uL Hgb (12.0-15.0) g/dL Hct (37.2-46.3) % MCV (80.0-97.0) fL MCHC (32.0-37.0) g/dL Immature Gran # (0.00-0.04) 10*3/uL Neutrophils # (1.80-7.70) 10*3/uL Neutrophils # (Manual) (1.3-7.7) k/uL Lymphocytes # (0.90-5.00) 10*3/uL Lymphocytes # (Manual) (1.0-4.8) k/uL Monocytes # (0.20-1.00) 10*3/uL Monocytes # (Manual) (0.20-1.00) X 10*3/uL Eosinophils # (0.04-0.35) 10*3/uL Eosinophils # (Manual) (0.04-0.35) X 10*3/uL Metamyelocytes # (Man) (0) k/uL Myelocytes # (Manual) (0) k/uL NRBC/100 WBC Diff (0.00-0.01) X 10*3/uL Toxic Vacuolation (None Seen) Chloride (98-107) mmol/L Carbon Dioxide 34.7 H (22-30) mmol/L BUN 31.9 H (7-17) mg/dL BUN/Creatinine Ratio 35.44 H (12.00-20.00) Ratio Glucose (74-99) mg/dL Assessment and Plan Assessment: Acute on chronic hypoxic respiratory failure secondary to an acute exacerbation of chronic obstructive pulmonary disease and acute exacerbation of systolic congestive heart failure History of oxygen dependent chronic obstructive pulmonary disease, maintained on Trelegy and oxygen at 3 L/min per nasal cannula Former smoker History of systolic congestive heart failure with an ejection fraction 20 to 25% Mild to moderate mitral regurgitation History of atrial fibrillation, not on anticoagulation Hypothyroidism Plan: The patient was seen and evaluated Labs and medications reviewed Remains on oral diuretics Cleared for discharge Continue her home oxygen Continue Trelegy Continue Singulair Continue albuterol HFA Complete a prednisone taper Follow-up in our office in 1 week This patient was seen independently by the pulmonary nurse practitioner addressing pulmonary issues I have personally seen and examined the patient, performed the documentation and the assessment and plan as written. Number of minutes spent on the visit: 24 Dictation was produced using [employer] dictation software. Please excuse any grammatical, word or spelling errors.
== END 2025-02-19 13:06 | disposition home or self-care (01) | DRG 190 ==
LOC: EC 13:52 → OBSVTOIN 16:57 → 6NMEDSUR 16:57
PROVIDERS: ADMIT Student in an Organized Health Care Education/Training Program; ATTEND Student in an Organized Health Care Education/Training Program
DX: J44.1 Chronic obstructive pulmonary disease with (acute) exacerbation (principal); G93.41 Metabolic encephalopathy; I50.23 Acute on chronic systolic (congestive) heart failure; I11.0 Hypertensive heart disease with heart failure; J96.21 Acute and chronic respiratory failure with hypoxia; I27.20 Pulmonary hypertension, unspecified; Z66 Do not resuscitate; E03.9 Hypothyroidism, unspecified; I08.1 Rheumatic disorders of both mitral and tricuspid valves; I48.19 Other persistent atrial fibrillation; I49.3 Ventricular premature depolarization; Z79.52 Long term (current) use of systemic steroids; Z79.84 Long term (current) use of oral hypoglycemic drugs; Z79.890 Hormone replacement therapy; Z79.899 Other long term (current) drug therapy; Z87.891 Personal history of nicotine dependence; Z99.81 Dependence on supplemental oxygen; Z88.6 Allergy status to analgesic agent; Z88.0 Allergy status to penicillin; Z88.5 Allergy status to narcotic agent; Z88.8 Allergy status to other drugs, medicaments and biological substances
CPT/HCPCS: 36415; 71045; 71046; 80048; 80053; 83605; 83735; 83880; 84443; 84484; 85025; 85379; 85610; 85730; 93005; 94640; 96374; 96375; 99285

== ENCOUNTER 2025-03-05 09:31 | Day surgery (SDC) | payer MEDICARE ==
[2025-03-01 11:53] VITALS: BMI 20.5
[~2025-03-05 09:31] MED LIST: ALPRAZolam 0.25 MG TAB PO PRN; ALPRAZolam 0.5 MG TAB PO PRN; NITROGLYCERIN SL TABS 0.4 MG TAB SUBLINGUAL PRN
[2025-03-05] MEDS: SODIUM CHLORIDE 0.9% 1,000 ML in EMPTY BAG 1 BAG IV SCH (10:10)
[2025-03-05 10:12] VITALS: RESP 18; TEMP 97.7
[2025-03-05] MEDS: IV FLUID CONTINUATION 1,000 ML IV ONE (10:13)
[2025-03-05] MEDS: HEPARIN SODIUM,PORCINE 10,000 UNIT in SODIUM CHLORIDE 0.9% 1,000 ML IRRIGATION PRN (12:12)
[2025-03-05] MEDS: HEPARIN SODIUM,PORCINE (1 ML) 2,500 UNIT in SODIUM CHLORIDE 0.9% 250 ML IRRIGATION PRN (12:12)
[2025-03-05] MEDS: MIDAZOLAM 2 MG/2 ML VIAL IVP ONE ×2 (12:12→12:42)
[2025-03-05] MEDS: fentaNYL (PF) 50 MCG/1 ML VIAL IVP ONE (12:12)
[2025-03-05] MEDS: LIDOCAINE 1% INJ 10MG/ML (20 ML MDV) SQ ONE ×2 (12:21→12:42)
[2025-03-05] MEDS: VERAPAMIL SYRINGE (5 MG/10 ML) INTRAARTER ONE (13:01)
[2025-03-05] MEDS: HEPARIN SODIUM 1,000 UN/ML (10ML VL) IVP ONE (13:03)
[2025-03-05] MEDS: IOPAMIDOL-370 100ML BTL INJ ONE (13:17)
[2025-03-05 13:22] LABS: O2 Sat Blood Gas 60.8 %
[2025-03-05 13:23] LABS: O2 Sat Blood Gas 67.9 %
[2025-03-05 13:26] LABS: O2 Sat Blood Gas 98.6 %
--- NOTE | 2025-03-05 14:55 | P.CARDCATH ---
Description of Procedure: PROCEDURES PERFORMED: Left heart catheterization, bilateral coronary angiography, left ventriculogram, right heart catheterization, ultrasound guided arterial access INDICATION: Cardiomyopathy CONSENT:I have discussed the risks, benefits and alternative therapies for the above-mentioned procedure and for both sedation/analgesia as well as necessary blood product administration, if indicated, as they pertain to this patient. The patient has indicated understanding and acceptance of the risks and procedures discussed. PROCEDURE: After the risks, benefits and alternatives of the above mentioned procedure explained in detail with the patient, informed consent was obtained. Patient was taken to the catheterization lab and prepped and draped in usual fashion. Ultrasound guidance was used to assess for arterial access. 1% lidocaine was used to anesthetize the right radial artery. A 6-Syrian sheath was placed in the right radial artery using modified Seldinger technique and ultrasound guidance. A sheath was attempted to be placed in the right brachial area however veins readily compressible and unable to cannulate. Therefore a 6 Syrian sheath was placed in the right femoral vein using ultrasound guidance. A 5 Syrian [place]-Asif catheter was inserted into the right atrium, right ventricle, pulmonary artery and pulmonary capillary wedge position with pressure measurements and oxygen saturations obtained. Thermodilution was performed. Left coronary angiography was performed with a 5-Syrian JL 3.5 catheter and r ight coronary angiography was performed with a 5-Syrian FR5 catheter in various views. A 5-Syrian FR5 catheter was inserted into the left ventricle and pressure measurements were obtained. Ventriculogram was performed in the SHAH projection with power injection. The right radial sheath was removed and a TR band was placed with hemostasis achieved. The patient tolerated the procedure well. Patient was transported back to the post catheterization holding area in stable condition. Conscious Sedation: Patient was monitored under the direct supervision of myself for conscious sedation using Versed and fentanyl for a total duration of 54 minutes HEMODYNAMICS: Aorta: 82/48 LV: 88/2, LVEDP 4 PCWP: 7 PA: 30/14 RV: 32/2 RA: 4 RA oxygen saturation: 68% PA oxygen saturation: 61% Right radial oxygen saturation: 99% Cardiac output by Beronica: 4.9 L/min Cardiac index by Beronica: 2.9 L/min/m Cardiac output by thermodilution: 2.9 L/min Cardiac index by Beronica: 1.8 L/min/m SELECTIVE CORONARY ARTERIOGRAPHY: LEFT MAIN: The left main is a large caliber vessel which bifurcates into the LAD and circumflex. There is no significant stenosis. LEFT ANTERIOR DESCENDING CORONARY ARTERY: LAD is a large caliber vessel which wraps around to the apex. There is proximal and mid LAD 20 to 30% stenosis. LEFT CIRCUMFLEX CORONARY ARTERY: Left circumflex is a moderate caliber vessel with a small caliber OM1 branch and small to moderate caliber OM 2 and OM 3 branches. OM 2 has 30 to 40% stenosis and OM 3 has 50 to 60% stenosis. RIGHT CORONARY ARTERY: The right coronary artery is a moderate caliber vessel which gives off a PDA and PLV branch and is the dominant vessel. There is diffuse 20 to 30% calcified stenosis Left ventriculogram: Left ventricular ejection fraction 40 to 45% with global hypokinesis. 1+ mitral regurgitation. 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 FINAL IMPRESSION: 1. Mild to moderate CAD as described above including 20 to 30% LAD stenosis, 50 to 60% small to moderate caliber OM 3 stenosis, 20 to 30% RCA stenosis 2. Low normal left and right sided filling pressures, low systemic pressures 3. Low normal CO/CI 4. 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 PLAN: 1. Aggressive risk factor modification per most recent ACC/AHA guidelines. 2. Decrease diuretics and decrease hypertensive medications. Most of heart failure more likely related to A-fib with RVR and may consider other antiarrhythmics or rate controlling medications of carvedilol decrease in blood pressure too much.
[2025-03-05 16:30] VITALS: BP 90/60; PULSE 91
== END 2025-03-05 17:00 | disposition home or self-care (01) ==
LOC: CATHCVL 09:31
PROVIDERS: ATTEND Internal Medicine
DX: I25.10 Atherosclerotic heart disease of native coronary artery without angina pectoris (principal); I25.84 Coronary atherosclerosis due to calcified coronary lesion; I42.9 Cardiomyopathy, unspecified; I48.19 Other persistent atrial fibrillation; I11.0 Hypertensive heart disease with heart failure; I50.22 Chronic systolic (congestive) heart failure; E78.5 Hyperlipidemia, unspecified; I08.1 Rheumatic disorders of both mitral and tricuspid valves; J44.9 Chronic obstructive pulmonary disease, unspecified; J96.10 Chronic respiratory failure, unspecified whether with hypoxia or hypercapnia; I27.20 Pulmonary hypertension, unspecified; Z79.51 Long term (current) use of inhaled steroids; Z79.890 Hormone replacement therapy; Z79.899 Other long term (current) drug therapy; Z99.81 Dependence on supplemental oxygen; Z82.49 Family history of ischemic heart disease and other diseases of the circulatory system
CPT/HCPCS: 93460; 85018; 82810; C1769 ×4; C1894 ×2; C1751; J2250; J1644 ×3; J2003; Q9967; J3010

== ENCOUNTER 2025-03-13 09:18 | Inpatient (IN) | payer MEDICARE ==
--- NOTE | 2025-03-13 10:40 | ED ---
General Adult HPI - General Chief complaint: Shortness of Breath Stated complaint: KAM Time Seen by Provider: 03/13/25 09:27 Source: patient, EMS Mode of arrival: EMS - History of Present Illness Initial comments: Dictation was produced using [employer] dictation software. please excuse any grammatical, word or spelling errors. Chief Complaint: 84-year-old female dyspnea History of Present Illness: Patient is 84-year-old female has past medical history of dyspnea. She relies on 24/7 home O2 at 3 L nasal cannula. States that today she was getting ready to go to doctors appointment when she was still short of breath she could not stand. Patient has history of COPD. Denies any pain complaints. No fever chills or night sweats. No cough The ROS documented in this emergency department record has been reviewed and confirmed by me. Those systems with pertinent positive or negative responses have been documented in the HPI. All other systems are other negative and/or noncontributory. - Related Data Home Medications Medication Instructions Recorded Confirmed Albuterol Inhaler [Ventolin Hfa 2 puff INHALATION RT-QID PRN 01/10/25 03/05/25 Inhaler] Fluticasone/Umeclidin/Vilanter 1 puff INHALATION RT-DAILY 01/10/25 03/05/25 [Trelegy Ellipta 200-62.5-25] Levothyroxine Sodium [Synthroid] 75 mcg PO DAILY 01/10/25 03/05/25 Mirtazapine 15 mg PO BID 01/10/25 03/05/25 Montelukast [Singulair] 10 mg PO DAILY 01/10/25 03/05/25 Previous Rx's Medication Instructions Recorded Acetaminophen Tab [Tylenol] 650 mg PO Q6HR PRN tab 01/15/25 carvediloL [Coreg*] 25 mg PO BID-W/MEALS #120 tab 02/19/25 Allergies Allergy/AdvReac Type Severity Reaction Status Date / Time aspirin Allergy Unknown Verified 03/13/25 09:26 diltiazem Allergy Swelling Verified 03/13/25 09:26 ezetimibe [From Zetia] Allergy Unknown Verified 03/13/25 09:26 metoprolol Allergy Swelling Verified 03/13/25 09:26 Penicillins Allergy Rash/Hives Verified 03/13/25 09:26 codeine AdvReac drowsiness/ Verified 03/13/25 09:26 nausea/vomi ting propoxyphene AdvReac drowsiness/ Verified 03/13/25 09:26 nausea/vomi ting [id number] Reductase AdvReac syncope Verified 03/13/25 09:26 Inhibitor Review of Systems ROS Statement: Those systems with pertinent positive or pertinent negative responses have been documented in the HPI. ROS Other: All systems not noted in ROS Statement are negative. Past Medical History Past Medical History: Atrial Fibrillation, Heart Failure, COPD, Thyroid Disorder Additional Past Medical History / Comment(s): Recent hospitalization 02/2025 History of Any Multi-Drug Resistant Organisms: None Reported Past Surgical History: No Surgical Hx Reported Past Anesthesia/Blood Transfusion Reactions: No Reported Reaction Past Psychological History: Anxiety Smoking Status: Former smoker General Exam - General Exam Comments Initial Comments: PHYSICAL EXAM: General Impression: Alert and oriented x3, not in acute distress HEENT: Normocephalic atraumatic, extra-ocular movements intact, pupils equal and reactive to light bilaterally, mucous membranes moist. Cardiovascular: Heart regular rate and rhythm Chest: Mildly dyspneic, end expiratory crackles Abdomen: abdomen soft, non-tender, non-distended, no organomegaly Musculoskeletal: Pulses present and equal in all extremities, no peripheral edema Motor: no focal deficits noted Neurological: CN II-XII grossly intact, no focal motor or sensory deficits noted Skin: Intact with no visualized rashes Psych: Normal affect and mood Course Vital Signs 03/13/25 03/13/25 03/13/25 09:20 10:49 12:12 Temperature 97.8 F Pulse Rate 101 H 93 65 Respiratory 20 18 18 Rate Blood Pressure 101/76 147/77 O2 Sat by Pulse 86 L 98 Oximetry 03/13/25 03/13/25 12:13 13:06 Temperature Pulse Rate 100 99 Respiratory 20 18 Rate Blood Pressure 101/76 126/87 O2 Sat by Pulse 92 L 92 L Oximetry Medical Decision Making - Medical Decision Making Was pt. sent in by a medical professional or institution (, PA, RECYCLER FORKLIFT DRIVER TRUCK DRIVER, urgent care, hospital, or long-term...) When possible be specific @ -No Did you speak to anyone other than the patient for history (EMS, parent, family, police, friend...)? What history was obtained from this source @ -No Did you review nursing and triage notes (agree or disagree)? Why? @ -I reviewed and agree with nursing and triage notes Were old charts reviewed (outside hosp., previous admission, EMS record, old EKG, old radiological studies, urgent care reports/EKG's, long-term records)? Report findings @ -No old charts were reviewed Differential Diagnosis (chest pain, altered mental status, abdominal pain women, abdominal pain men, vaginal bleeding, musculoskeletal, weakness, fever, dyspnea, syncope, headache, dizziness, GI bleed, back pain, seizure, CVA, palpatations, mental health)? @ -Differential Dyspnea: Coronary syndrome, arrhythmia, tamponade, asthma, COPD, pulmonary embolism, pneumonia, pneumothorax, pulmonary effusion, anaphylaxis, diabetic ketoacidosis, flailed chest, pulmonary contusion, diaphragmatic rupture, anemia, neur omuscular, this is not meant to be an all-inclusive list. EKG interpreted by me (3pts min.). @ -My EKG interpretation: Ventricular rate 94, A-fib, QRS 85, QTc 428. No QTC prolongation, no ST or T-wave changes noted. Overall, this EKG is unremarkable X-rays interpreted by me (1pt min.). @ -Chest x-ray shows heart failure CT interpreted by me (1pt min.). @ -None done U/S interpreted by me (1pt. min.). @ -None done What testing was considered but not performed or refused? (CT, X-rays, U/S, labs)? Why? @ -None What meds were considered but not given or refused? Why? @ -None Was smoking cessation discussed for >3mins.? @ -No Were there social determinants of health that impacted care today? How? (Homelessness, low income, unemployed, alcoholism, drug addiction, transportation, low edu. Level, literacy, decrease access to med. care, long-term, rehab)? @ -No Was there de-escalation of care discussed even if they declined (Discuss DNR or withdrawal of care, Hospice)? DNR status @ -No What co-morbidities impacted this encounter? (DM, HTN, Smoking, COPD, CAD, Cancer, CVA, ARF, Chemo, Hep., AIDS, mental health diagnosis, sleep apnea, morbid obesity)? @ -Tachycardia, COPD, heart failure Was patient admitted / discharged? Hospital course, mention meds given and route, prescriptions, significant lab abnormalities, going to OR and other pertinent info. @ -84-year-old female dyspnea and hypoxic respiratory failure. Patient significant comorbidities including home O2 use, COPD and CHF. Patient hypoxic requiring increased O2 requirements. Patient however no acute distress. Lab oratory evaluation obtained. Labs shows heart failure. Troponin negative. Rest of labs within acceptable limits. X-ray confirms heart failure. Patient given Lasix will be admitted consultation to cardiology. Did you discuss the management of the patient with other professionals (professionals i.e. , PA, RECYCLER FORKLIFT DRIVER TRUCK DRIVER, lab, RT, psych nurse, social service assistant, stem lead former, teacher, natural resource officer, classification case manager)? Give summary @ -Case discussed with hospitalist for admission Was critical care preformed (if so, how long)? @ -No Undiagnosed new problem with uncertain prognosis? @ -No Drug Therapy requiring intensive monitoring for toxicity (Heparin, Nitro, Insulin, Cardizem)? @ -No Were any procedures done? @ -No Diagnosis/symptom? Acute, or Chronic, or Acute on Chronic? Uncomplicated (without systemic symptoms) or Complicated (systemic symptoms)? @ -Heart failure Side effects of treatment? @ -No Exacerbation, Progression, or Severe Exacerbation? @ -No Poses a threat to life or bodily function? How? (Chest pain, USA, NV, pneumonia, PE, COPD, DKA, ARF, appy, cholecystitis, CVA, Diverticulitis, Homicidal, Suicidal, threat to staff... and all critical care pts) @ -Yes - Lab Data Result diagrams: 03/13/25 12:13 03/13/25 12:13 Lab Results 03/13/25 03/13/25 03/13/25 Range/Units 12:13 12:13 12:13 WBC 5.43 (4.50-10.00) 10*3/uL RBC 3.87 L (4.10-5.20) 10*6/uL Hgb 12.3 (12.0-15.0) g/dL Hct 37.6 (37.2-46.3) % MCV 97.2 H (80.0-97.0) fL MCH 31.8 (27.0-32.0) pg MCHC 32.7 (32.0-37.0) g/dL Plt Count 276 (140-440) 10*3/uL MPV 9.4 L (9.5-12.2) fL Immature Gran % (Auto) 2.0 % Neutrophils % 84.0 % Lymphocytes % 9.4 % Monocytes % 2.2 % Eosinophils % 1.5 % Basophils % 0.9 % Immature Gran # 0.11 H (0.00-0.04) 10*3/uL Neutrophils # 4.56 (1.80-7.70) 10*3/uL Lymphocytes # 0.51 L (0.90-5.00) 10*3/uL Monocytes # 0.12 L (0.20-1.00) 10*3/uL Eosinophils # 0.08 (0.04-0.35) 10*3/uL Basophils # 0.05 (0.00-0.10) 10*3/uL PT 10.5 (10.0-12.5) sec INR 0.9 (<1.2) APTT 23.9 (22.0-30.0) sec VBG pH (7.31-7.41) VBG pCO2 (37-51) mmHg VBG HCO3 (24-28) mmol/L Sodium 141 (137-145) mmol/L Potassium 5.0 (3.5-5.1) mmol/L Chloride 104 (98-107) mmol/L Carbon Dioxide 30 (22-30) mmol/L Anion Gap 7 mmol/L BUN 13 (7-17) mg/dL Creatinine 0.66 (0.52-1.04) mg/dL Est GFR (CKD-EPI)AfAm >90 (>60 ml/min/1.73 sqM) Est GFR (CKD-EPI)NonAf 83 (>60 ml/min/1.73 sqM) Glucose 106 H (74-99) mg/dL Plasma Lactic Acid Dereck (0.7-2.0) mmol/L Calcium 8.8 (8.4-10.2) mg/dL Magnesium 2.1 (1.6-2.3) mg/dL Total Bilirubin 1.5 H (0.2-1.3) mg/dL AST 34 (14-36) U/L ALT 12 (4-34) U/L Alkaline Phosphatase 91 (38-126) U/L Troponin I (0.000-0.034) ng/mL NT-Pro-B Natriuret Pep 5080 pg/mL Total Protein 6.7 (6.3-8.2) g/dL Albumin 3.8 (3.5-5.0) g/dL 03/13/25 03/13/25 03/13/25 Range/Units 12:13 12:13 12:13 WBC (4.50-10.00) 10*3/uL RBC (4.10-5.20) 10*6/uL Hgb (12.0-15.0) g/dL Hct (37.2-46.3) % MCV (80.0-97.0) fL MCH (27.0-32.0) pg MCHC (32.0-37.0) g/dL Plt Count (140-440) 10*3/uL MPV (9.5-12.2) fL Immature Gran % (Auto) % Neutrophils % % Lymphocytes % % Monocytes % % Eosinophils % % Basophils % % Immature Gran # (0.00-0.04) 10*3/uL Neutrophils # (1.80-7.70) 10*3/uL Lymphocytes # (0.90-5.00) 10*3/uL Monocytes # (0.20-1.00) 10*3/uL Eosinophils # (0.04-0.35) 10*3/uL Basophils # (0.00-0.10) 10*3/uL PT (10.0-12.5) sec INR (<1.2) APTT (22.0-30.0) sec VBG pH 7.34 (7.31-7.41) VBG pCO2 59 H (37-51) mmHg VBG HCO3 32 H (24-28) mmol/L Sodium (137-145) mmol/L Potassium (3.5-5.1) mmol/L Chloride (98-107) mmol/L Carbon Dioxide (22-30) mmol/L Anion Gap mmol/L BUN (7-17) mg/dL Creatinine (0.52-1.04) mg/dL Est GFR (CKD-EPI)AfAm (>60 ml/min/1.73 sqM) Est GFR (CKD-EPI)NonAf (>60 ml/min/1.73 sqM) Glucose (74-99) mg/dL Plasma Lactic Acid Dereck 0.7 (0.7-2.0) mmol/L Calcium (8.4-10.2) mg/dL Magnesium (1.6-2.3) mg/dL Total Bilirubin (0.2-1.3) mg/dL AST (14-36) U/L ALT (4-34) U/L Alkaline Phosphatase (38-126) U/L Troponin I <0.012 (0.000-0.034) ng/mL NT-Pro-B Natriuret Pep pg/mL Total Protein (6.3-8.2) g/dL Albumin (3.5-5.0) g/dL Disposition Clinical Impression: Congestive heart failure Disposition: ADMITTED IP TO THIS HOSP Condition: Fair Referrals: Tootie Knott DO [Primary Care Provider] - 1-2 days Decision Time: 13:45
--- NOTE | 2025-03-13 12:07 | XR ---
EXAMINATION TYPE: XR chest 2V DATE OF EXAM: 03/13/2025 COMPARISON: 02/17/2025 CLINICAL INDICATION: Female, 84 years old with history of difficulty breathing; , TECHNIQUE: XR chest 2V views of the chest. FINDINGS: Heart is enlarged and there is ectasia of the thoracic aorta. Diffuse interstitial pattern with bilat eral consolidation and pleural effusion. Diffuse osteopenia. Postsurgical changes cervical spine. Art hropathy of the shoulders. Cardiac enlargement could be related to the pericardial effusion or cardio megaly myopathy. Dextrocardia not entirely excluded. Underlying COPD. IMPRESSION: 1. Diffuse pleural-parenchymal changes correlate for CHF superimposed on a background COPD. Otherwise consider pneumonia. 2. Cardiomegaly can be associated with pericardial effusion or cardiomyopathy. Possibility of dextroc ardia not excluded. 3. Stable thoracic aortic ectasia or aneurysm unchanged from prior exam. [facility], , 03/13/2025 12:04 PM
[2025-03-13 12:38] LABS: VBG HCO3 32.0 mmol/L (24-28); VBG PCO2 59.0 mmHg (37-51); VBG PH 7.34 (7.31-7.41)
[2025-03-13 12:39] LABS: Basophils # (A) 0.05 10*3/uL (0.00-0.10); Basophils % (A) 0.9 %; Eosinophils # (A) 0.08 10*3/uL (0.04-0.35); Eosinophils % (A) 1.5 %; HCT 37.6 % (37.2-46.3); HGB 12.3 g/dL (12.0-15.0); Lymphocytes # (A) 0.51 10*3/uL (0.90-5.00); Lymphocytes % (A) 9.4 %; MCH 31.8 pg (27.0-32.0); MCHC 32.7 g/dL (32.0-37.0); MCV 97.2 fL (80.0-97.0); Monocytes # (A) 0.12 10*3/uL (0.20-1.00); Monocytes % (A) 2.2 %; Neutrophils # (A) 4.56 10*3/uL (1.80-7.70); Neutrophils % (A) 84.0 %; Platelet Count 276 10*3/uL (140-440); RBC 3.87 10*6/uL (4.10-5.20); RDW 14.6 % (11.5-14.5); WBC 5.43 10*3/uL (4.50-10.00)
[2025-03-13 12:50] LABS: ALT 12 U/L (4-34); African American GFR (CKD) >90 (>60 ml/min/1.73 sqM); Albumin 3.8 g/dL (3.5-5.0); Anion Gap 7 mmol/L; Blood Urea Nitrogen 13 mg/dL (7-17); Calcium 8.8 mg/dL (8.4-10.2); Carbon Dioxide 30 mmol/L (22-30); Chloride 104 mmol/L (98-107); Glucose 106 mg/dL (74-99); Non-African American GFR(CKD) 83 (>60 ml/min/1.73 sqM); Sodium 141 mmol/L (137-145); Total Protein 6.7 g/dL (6.3-8.2)
[2025-03-13 12:51] LABS: AST 34 U/L (14-36); Alkaline Phosphatase 91 U/L (38-126); Magnesium 2.1 mg/dL (1.6-2.3); Potassium 5.0 mmol/L (3.5-5.1)
[2025-03-13 12:58] LABS: NT-Pro-B-Type Natriuretic Pept 5080 pg/mL
[2025-03-13 13:07] LABS: INR 0.9 (<1.2); Partial Thromboplastin Time 23.9 sec (22.0-30.0); Prothrombin Time 10.5 sec (10.0-12.5)
[2025-03-13] MEDS: FUROSEMIDE 10 MG/ML 4 ML VIAL IV SCH (14:41)
[2025-03-13] MEDS: SODIUM CHLORIDE 0.9% 1,000 ML IV SCH (14:42)
[2025-03-13] MEDS ORDERED: ACETAMINOPHEN TAB 325 MG TAB PO PRN (15:46)
[2025-03-13] MEDS ORDERED: IPRATROPIUM-ALBUTEROL 3 ML NEB INHALATION PRN (15:47)
[2025-03-13] MEDS: methylPREDNISolone SOD SUCCI 125 MG/2 ML VIAL IV SCH (16:11)
--- NOTE | 2025-03-13 16:39 | HP ---
HISTORY AND PHYSICAL CHIEF COMPLAINT: Shortness of breath. HISTORY OF PRESENT ILLNESS: This is an 84-year-old woman with a past medical history of CHF, COPD, was complaining of shortness of breath. The patient was recently hospitalized with shortness of breath and ejection fraction found to be 20% to 25%. There is no history of fever, rigors, or chills. There is no history of any headache, loss of consciousness, or seizures. PAST MEDICAL HISTORY: History of CHF, COPD, atrial fibrillation, rest of the chart is also reviewed. HOME MEDICATIONS: Reviewed include Coreg. Dose and rest of medications reviewed. ALLERGIES: Aspirin, rest of allergies noted. FAMILY HISTORY: No history of heart disease or strokes in the family. SOCIAL HISTORY: Remote history of smoking. REVIEW OF SYSTEMS: A 14-point review of systems negative except as mentioned earlier. PHYSICAL EXAMINATION: VITAL SIGNS: Pulse is 90, blood pressure 150/88, and respirations 28. HEENT: Conjunctivae normal. NECK: No jugular venous distention. CARDIOVASCULAR: S1, S2. RESPIRATION: A few scattered rhonchi and crackles at the bases. ABDOMEN: Soft, nontender. LEGS: No edema. NERVOUS SYSTEM: Nonfocal. SKIN: No rash. JOINTS: No active deforming arthropathy. LABORATORY DATA: Labs are noted. Chest x-ray reviewed. ASSESSMENT: 1. Congestive heart failure, acute exacerbation with vhrhm-[id number] systolic dysfunction, ejection fraction of 20% to 25%. 2. Chronic obstructive pulmonary disease acute exacerbation. 3. Aqmubjfy-vn-cfehep mitral regurgitation. 4. Atrial fibrillation. 5. History of hypothyroidism. 6. Multiple complex medical issues. RECOMMENDATIONS AND DISCUSSION: This is an 84-year-old woman presented with multiple complex medical issues. We will monitor the patient closely. I would recommend to continue the current medications and symptomatic treatment. Otherwise, I would optimize diuretics and intensive bronchodilators. Recommend Cardiology and Pulmonology consultations too. Guarded prognosis. Further recommendations to follow. I would also recommend viral titers also. BNP is elevated at 5080. MMODL / IJN: [id number] /
[2025-03-13] MEDS: IPRATROPIUM-ALBUTEROL 3 ML NEB INHALATION SCH (20:10)
[2025-03-13] MEDS: SYMBICORT 160-4.5 MCG INHALER INHALATION SCH (20:10)
[2025-03-13] MEDS: MIRTAZAPINE 15 MG TAB PO SCH (20:32)
[2025-03-13] MEDS: HEPARIN SODIUM,PORCINE 5,000 UNIT/ML 1 ML VIAL SQ SCH (20:34)
--- NOTE | 2025-03-14 04:03 | P.CNPUL ---
History of Present Illness Consult date: 03/14/25 Requesting physician: Jozef Joseph Reason for consult: COPD Chief complaint: Shortness of breath History of present illness: Patient is an 84-year-old female with past medical history significant for atrial fibrillation, congestive heart failure, COPD, chronic oxygen dependence, and former tobacco smoker. Of note, recently hospitalized earlier this month for acute COPD and CHF exacerbation. Most recent available echocardiogram from Dec, 2024 left-ventricular ejection fraction of 20 to 25%, with mild aortic regurgitation and moderate to severe mitral regurgitation. More recently underwent heart catheterization on 03/05/2025 remarkable for mild to moderate nonobstructive coronary artery disease. EF was 40 to 45% with apical pouching which could possibly be consistent with apical hypertrophic cardiomyopathy. Recommendation was for medical management. She has recently been seeing Dr. May referred from Cardiology. Presented the emergency department yesterday morning complaining of increased work of breathing. She is normally oxygen pendant on 3 L/min nasal cannula 08/03, which has been titrated up to 6 L/min nasal cannula. Chest x-ray showing what appears to be reversed cardiac silhouette, cardiomegaly, pulmonary vascular congestion, and small bilateral pleural effusions. NT-proBNP elevated at 5080. Remaining lab work including a CBC with a WBC count of 5.4, hemoglobin 12.3, platelets 276. CMP unremarkable, electrolytes WDL, creatinine 0.66, glucose 106. Troponin less than 0.012. EKG atrial fibrillation ventricular response, rate of 94 bpm, nonspecific T wave abnormalities. Patient currently being evaluated on the cardiac stepdown unit was ordered to start on Lasix 40 mg twice daily. However refused previous dose. She has just got up to the edge of the bed. Tachypneic. Pursed lip breathing. On 6 L/min nasal cannula. I asked the nurse to give the patient a dose of Lasix 40 mg once now. Breathing seems to have marginally improved while at rest. Patient states her shortness of breath started over the last 24 to 48 hours. Denies any chest pain, heart palpitations or syncopal events. Does sleep in a recliner versus 3 pillows at night. No significant lower extremity edema. She denies any recent sick contacts. Denies cough, sputum production, pleurisy. Denies any fevers or chills. She is already been started on combination of DuoNebs [id number], Symbicort inhaler, and IV Solu-Medrol 60 mg every 6 hours. Most recent vital signs: Temperature 98 F, heart rate 93 bpm, blood pressure 138/87 mmHg, tachypneic breathing in the mid 20s to 30s, SPO2 recorded at 92% on the 6 L/min nasal cannula. Review of Systems REVIEW OF SYSTEMS: CONSTITUTIONAL: Denies any recent significant weight loss or weight gain. EYES: Denies change in vision. EARS, NOSE, MOUTH, THROAT: Denies headaches, denies sore throat. CARDIOVASCULAR: Denies chest pain, palpitations or syncopal episodes. RESPIRATORY: Reports shortness of breath. Denies cough, congestion or hemoptysis. GASTROINTESTINAL: Denies change in appetite, abdominal pain, nausea and vomiting, or diarrhea GENITOURINARY: Denies hematuria, denies infections. MUSKULOSKELETAL: Denies pain, denies swelling. INTEGUMENTARY: Denies rash, denies eczema. NEUROLOGICAL: Denies recent memory loss, no recent seizure activity. PSYCHIATRIC: Denies anxiety, denies depression. HEMATOLOGIC/LYMPHATIC: Denies anemia, denies enlarged lymph node Past Medical History Past Medical History: Atrial Fibrillation, Heart Failure, COPD, Thyroid Disorder Additional Past Medical History / Comment(s): Recent hospitalization 02/2025 History of Any Multi-Drug Resistant Organisms: None Reported Past Surgical History: No Surgical Hx Reported Past Anesthesia/Blood Transfusion Reactions: No Reported Reaction Past Psychological History: Anxiety Smoking Status: Former smoker Past Alcohol Use History: None Reported Additional Past Alcohol Use History / Comment(s): Smoked 1 ppd for 50 years Past Drug Use History: None Reported Medications and Allergies Home Medications Medication Instructions Recorded Confirmed Type Albuterol Inhaler [Ventolin Hfa 2 puff INHALATION RT-QID PRN 01/10/25 03/13/25 History Inhaler] Fluticasone/Umeclidin/Vilanter 1 puff INHALATION RT-DAILY 01/10/25 03/13/25 History [Trelegy Ellipta 200-62.5-25] Levothyroxine Sodium [Synthroid] 75 mcg PO DAILY 01/10/25 03/13/25 History Mirtazapine 15 mg PO BID 01/10/25 03/13/25 History Montelukast [Singulair] 10 mg PO DAILY 01/10/25 03/13/25 History Acetaminophen Tab [Tylenol] 650 mg PO Q6HR PRN tab 01/15/25 03/13/25 Rx carvediloL [Coreg*] 25 mg PO BID-W/MEALS #120 tab 02/19/25 03/13/25 Rx Allergies Allergy/AdvReac Type Severity Reaction Status Date / Time aspirin Allergy Unknown Verified 03/13/25 09:26 diltiazem Allergy Swelling Verified 03/13/25 09:26 ezetimibe [From Zetia] Allergy Unknown Verified 03/13/25 09:26 metoprolol Allergy Swelling Verified 03/13/25 09:26 Penicillins Allergy Rash/Hives Verified 03/13/25 09:26 codeine AdvReac drowsiness/ Verified 03/13/25 09:26 nausea/vomi ting propoxyphene AdvReac drowsiness/ Verified 03/13/25 09:26 nausea/vomi ting [id number] Reductase AdvReac syncope Verified 03/13/25 09:26 Inhibitor Physical Exam Vitals: Vital Signs Temp Pulse Pulse Resp BP BP Pulse Ox 03/14/25 03:06 93 16 138/87 92 L 03/14/25 01:06 93 16 03/13/25 23:19 98.0 F 93 16 128/80 95 03/13/25 22:12 104 H 16 108/68 94 L 03/13/25 20:38 98.7 F 115 H 22 106/85 94 L 03/13/25 20:00 104 H 16 03/13/25 18:44 105 H 16 107/86 90 L 03/13/25 18:30 108 H 16 99/75 96 03/13/25 17:38 120 H 18 97/75 94 L 03/13/25 16:02 97.5 F L 131 H 20 91/65 93 L 03/13/25 14:46 90 20 115/88 90 L 03/13/25 13:06 99 18 126/87 92 L 03/13/25 12:13 100 20 101/76 92 L 03/13/25 12:12 65 18 147/77 98 03/13/25 10:49 93 18 101/76 86 L 03/13/25 09:20 97.8 F 101 H 20 Intake and Output 03/13/25 03/13/25 03/14/25 14:59 22:59 06:59 Intake Total 240 Output Total 200 Balance 240 -200 Intake: Oral 240 Output: Urine 200 Other: Voiding Method Toilet Toilet # Bowel Movements 1 Weight 60.328 kg 60.328 kg GENERAL EXAM: Alert, 84-year-old female, has just sat up to the edge of the bed, pursed lip breathing, tachypneic. HEAD: Normocephalic and atraumatic EYES: Normal reaction of pupils, equal size. NOSE: Clear with pink turbinates. THROAT: No erythema or exudates. NECK: No masses, no JVD. CHEST: No chest wall deformity. LUNGS: Equal air entry with bibasilar inspiratory crackles. On 6 L/min nasal cannula. CVS: S1 and S2 normal with no audible murmur, irregular rhythm. No extra heart sounds ABDOMEN: No hepatosplenomegaly, active bowel sounds, no guarding or rigidity. SPINE: No scoliosis or deformity SKIN: No rashes CENTRAL NERVOUS SYSTEM: No focal deficits, tone is normal in all 4 extremities. EXTREMITIES: There is no peripheral edema, clubbing, or cyanosis. Peripheral pulses are intact. Results - Laboratory Findings CBC and BMP: 03/13/25 12:13 03/13/25 12:13 PT/INR, D-dimer PT 10.5 sec (10.0-12.5) 03/13/25 12:13 INR 0.9 (<1.2) 03/13/25 12:13 Abnormal lab findings: Abnormal Labs 03/13/25 03/13/25 03/13/25 12:13 12:13 12:13 RBC 3.87 L MCV 97.2 H MPV 9.4 L Immature Gran # 0.11 H Lymphocytes # 0.51 L Monocytes # 0.12 L VBG pCO2 59 H VBG HCO3 32 H Glucose 106 H Total Bilirubin 1.5 H - Diagnostic Findings Chest x-ray: image reviewed Assessment and Plan Assessment: Acute on chronic hypoxic respiratory failure secondary to an acute exacerbation of systolic congestive heart failure and acute exacerbation of chronic obstructive pulmonary disease Nonischemic cardiomyopathy, with an ejection fraction 20 to 25% Moderate to severe mitral regurgitation Chronic atrial fibrillation, with controlled ventricular response, not on any anticoagulation Nonobstructive coronary artery disease, based on recent heart catheterization Hypothyroidism Chronic obstructive pulmonary disease, normally maintained on Trelegy maintenance inhaler Chronic hypoxemic respiratory failure, secondary to above Former tobacco smoker Plan: The patient was seen and evaluated Chest x-ray showing what appears to be reversed cardiac silhouette, cardiomegaly, pulmonary vascular congestion, and small bilateral pleural effusions. NT-proBNP elevated at 5080. Continue Lasix 40 mg twice daily Cardiology consulted Continue on DuoNeb inhalations Continue on Symbicort Continue IV Solu-Medrol Currently requiring 6 L/min nasal cannula, wean as tolerated We will continue to follow and make further recommendations based on her clinical status I have personally seen and examined the patient, performed the documentation and the assessment and plan as written. Number of minutes spent on the visit: 20 Dictation was produced using [employer] dictation software. Please excuse any grammatical, word or spelling errors. Time with Patient: Greater than 30
[2025-03-14 05:48] LABS: Glucose,Whole Blood 135 mg/dL (70-110)
[2025-03-14] MEDS: LEVOTHYROXINE 75 MCG TAB PO SCH (06:03)
[2025-03-14 08:25] LABS: Basophils # (A) 0.01 10*3/uL (0.00-0.10); Basophils % (A) 0.2 %; Eosinophils # (A) 0.00 10*3/uL (0.04-0.35); Eosinophils % (A) 0.0 %; HCT 36.9 % (37.2-46.3); HGB 11.6 g/dL (12.0-15.0); Lymphocytes # (A) 0.63 10*3/uL (0.90-5.00); Lymphocytes % (A) 11.5 %; MCH 30.8 pg (27.0-32.0); MCHC 31.4 g/dL (32.0-37.0); MCV 97.9 fL (80.0-97.0); Monocytes # (A) 0.13 10*3/uL (0.20-1.00); Monocytes % (A) 2.4 %; Neutrophils # (A) 4.63 10*3/uL (1.80-7.70); Neutrophils % (A) 84.3 %; Platelet Count 289 10*3/uL (140-440); RBC 3.77 10*6/uL (4.10-5.20); RDW 14.6 % (11.5-14.5); WBC 5.49 10*3/uL (4.50-10.00)
[2025-03-14 08:37] LABS: African American GFR (CKD) 86 (>60 ml/min/1.73 sqM); Anion Gap 8 mmol/L; Blood Urea Nitrogen 19 mg/dL (7-17); Calcium 8.5 mg/dL (8.4-10.2); Carbon Dioxide 29 mmol/L (22-30); Chloride 105 mmol/L (98-107); Glucose 138 mg/dL (74-99); Non-African American GFR(CKD) 75 (>60 ml/min/1.73 sqM); Potassium 4.5 mmol/L (3.5-5.1); Sodium 142 mmol/L (137-145)
--- NOTE | 2025-03-14 08:38 | XR ---
EXAMINATION TYPE: XR chest 1V portable DATE OF EXAM: 03/14/2025 6:52 AM COMPARISON: 03/13/2025 CLINICAL INDICATION: Female, 84 years old with history of chf, TECHNIQUE: XR chest 1V portable views of the chest are obtained. FINDINGS: Demonstrated are scattered senescent parenchymal change. Discoid atelectasis right midlung. Small effusions noted. The heart is stable. Hilar and mediastinal structures are within normal limits. Degenerative changes are seen of the dorsal spine. IMPRESSION: 1. Discoid atelectasis right midlung. Small effusions noted. [facility], , 03/14/2025 8:35 AM
[2025-03-14] MEDS: MONTELUKAST 10 MG TAB PO SCH (09:29)
[2025-03-14 11:21] LABS: Glucose,Whole Blood 188 mg/dL (70-110)
[2025-03-14 12:26] VITALS: BMI 21.4
--- NOTE | 2025-03-14 12:30 | P.CRDCN ---
History of Present Illness Consult date: 03/14/25 Consult reason: congestive heart failure History of present illness: This is an 84-year-old female patient of Dr. May with past medical history of chronic respiratory failure on home O2 3 L nasal cannula, COPD, hypertension, hyperlipidemia, cardiomyopathy with a EF of 20 to 25% nonischemic versus ischemic, chronic systolic heart failure, mild to moderate CAD, persistent atrial fibrillation not on anticoagulation, moderate to severe mitral regurgitation, severe tricuspid regurgitation, severe pulmonary hypertension. We have been asked to evaluate the patient for heart failure. Patient states that she had sudden onset of shortness of breath and her feet were swelling. She states [place]in starts in her toes and then moves up her leg. Patient was diagnosed with heart failure but has refused IV Lasix. It seems to be mostly related to urinary incontinence. Patient was last seen in the office on 02/27/2025 and at that time, Dr. May discussed right and left heart catheterization and patient was agreeable to this plan and this was performed on 03/05, see below. Blood pressure 106/85, heart rate 65, pulse ox 91% on 6 L nasal cannula. After long discussion with the patient, she is agreeable to take Lasix and have Tran catheter placed. -EKG: Atrial fibrillation 94 bpm. -Chest x-ray: Discoid atelectasis right midlung, small effusions noted. -Laboratory studies: WBC 5.4, hemoglobin 9.6, BUN 19 creatinine 0.75. Troponin negative x 1. proBNP 5080. -Home cardiac medications: Coreg 25 mg twice daily, also on levothyroxine. -Left and right heart catheterizations performed 03/05/2025 revealed mild to moderate CAD with 20 to 30% LAD stenosis, 50 to 60% small to moderate caliber OM 3 stenosis, 20 to 30% RCA stenosis. Low normal left and right sided filling pressures, low systemic pressures. Low normal CO/CI. 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 Plan was for aggressive risk factor modification and decrease diuretics and decrease hypertensive medications. Most of heart failure most likely due to atrial fibrillation with RVR. Review Of Systems: At the time of my exam: CONSTITUTIONAL: Denies fever or chills. HEENT: Denies blurred vision, vision changes, or eye pain. Denies hemoptysis CARDIOVASCULAR: Denies chest pain. Denies orthopnea. Denies PND. Denies palpitations RESPIRATORY: Denies shortness of breath. GASTROINTESTINAL: Denies abdominal pain. Denies nausea or vomiting. HEMATOLOGIC: Denies bleeding disorders. GENITOURINARY: Denies any blood in urine. SKIN: Denies puritis. Denies rash. Physical examination: Gen: This is an 84-year-old female in no acute distress. VS: reviewed HEENT: Head is atraumatic, normocephalic. Pupils equal, round. Sclerae is anicteric. NECK: Supple. No JVD. LUNGS: Bilateral wheezing. No intercostal retractions. HEART: Regular rate and rhythm. 3/6 systolic murmur. ABDOMEN: Soft No tenderness. EXTREMITIES: No pedal edema. No calf tenderness. NEUROLOGICAL: Patient is awake, alert and oriented x3. Assessment: Acute on chronic hypoxic respiratory failure Acute on chronic systolic heart failure COPD exacerbation Cardiomyopathy with EF 20 to 25% nonischemic most likely tachycardia induced cardiomyopathy, improved to 40 to 45% Mild to moderate coronary artery disease on recent heart cath Hypertension Hyperlipidemia Persistent atrial fibrillation not on anticoagulation by choice Moderate to severe mitral regurgitation Severe tricuspid regurgitation Severe pulmonary hypertension Chronic hypoxic respiratory failure on home O2 at 3 L nasal cannula Hypothyroidism Plan: Resume patient's home cardiac medications Continue patient on IV Lasix 40 mg every 12 hours Monitor BOOGIE, daily weights, electrolytes and renal function Tran catheter placement No need to repeat echocardiogram at this time Further recommendations to follow based upon clinical course Thank you kindly for this consultation. Nurse practitioner note has been reviewed, I agree with documented findings and plan of care. Patient was seen and examined. Past Medical History Past Medical History: Atrial Fibrillation, Heart Failure, COPD, Thyroid Disorder Additional Past Medical History / Comment(s): Recent hospitalization 02/2025 History of Any Multi-Drug Resistant Organisms: None Reported Past Surgical History: No Surgical Hx Reported Past Anesthesia/Blood Transfusion Reactions: No Reported Reaction Past Psychological History: Anxiety Smoking Status: Former smoker Past Alcohol Use History: None Reported Additional Past Alcohol Use History / Comment(s): Smoked 1 ppd for 50 years Past Drug Use History: None Reported Medications and Allergies Home Medications Medication Instructions Recorded Confirmed Type Albuterol Inhaler [Ventolin Hfa 2 puff INHALATION RT-QID PRN 01/10/25 03/13/25 History Inhaler] Fluticasone/Umeclidin/Vilanter 1 puff INHALATION RT-DAILY 01/10/25 03/13/25 History [Trelegy Ellipta 200-62.5-25] Levothyroxine Sodium [Synthroid] 75 mcg PO DAILY 01/10/25 03/13/25 History Mirtazapine 15 mg PO BID 01/10/25 03/13/25 History Montelukast [Singulair] 10 mg PO DAILY 01/10/25 03/13/25 History Acetaminophen Tab [Tylenol] 650 mg PO Q6HR PRN tab 01/15/25 03/13/25 Rx carvediloL [Coreg*] 25 mg PO BID-W/MEALS #120 tab 02/19/25 03/13/25 Rx Allergies Allergy/AdvReac Type Severity Reaction Status Date / Time aspirin Allergy Unknown Verified 03/13/25 09:26 diltiazem Allergy Swelling Verified 03/13/25 09:26 ezetimibe [From Zetia] Allergy Unknown Verified 03/13/25 09:26 metoprolol Allergy Swelling Verified 03/13/25 09:26 Penicillins Allergy Rash/Hives Verified 03/13/25 09:26 codeine AdvReac drowsiness/ Verified 03/13/25 09:26 nausea/vomi ting propoxyphene AdvReac drowsiness/ Verified 03/13/25 09:26 nausea/vomi ting [id number] Reductase AdvReac syncope Verified 03/13/25 09:26 Inhibitor Physical Exam Vitals: Vital Signs Temp Pulse Pulse Resp BP BP Pulse Ox 03/14/25 07:57 98 03/14/25 03:06 93 16 138/87 92 L 03/14/25 01:06 93 16 03/13/25 23:19 98.0 F 93 16 128/80 95 03/13/25 22:12 104 H 16 108/68 94 L 03/13/25 20:38 98.7 F 115 H 22 106/85 94 L 03/13/25 20:00 104 H 16 03/13/25 18:44 105 H 16 107/86 90 L 03/13/25 18:30 108 H 16 99/75 96 03/13/25 17:38 120 H 18 97/75 94 L 03/13/25 16:02 97.5 F L 131 H 20 91/65 93 L 03/13/25 14:46 90 20 115/88 90 L 03/13/25 13:06 99 18 126/87 92 L 03/13/25 12:13 100 20 101/76 92 L 03/13/25 12:12 65 18 147/77 98 03/13/25 10:49 93 18 101/76 86 L 03/13/25 09:20 97.8 F 101 H 20 Intake and Output 03/13/25 03/14/25 03/14/25 22:59 06:59 14:59 Intake Total 240 Output Total 200 Balance 240 -200 Intake: Oral 240 Output: Urine 200 Other: Voiding Method Toilet Toilet # Voids 3 1 # Bowel Movements 1 Weight 60.328 kg 60.1 kg Results 03/14/25 05:45 03/14/25 05:45 Cardiac Enzymes 03/13/25 03/13/25 Range/Units 12:13 12:13 AST 34 (14-36) U/L Troponin I <0.012 (0.000-0.034) ng/mL Coagulation 03/13/25 Range/Units 12:13 PT 10.5 (10.0-12.5) sec APTT 23.9 (22.0-30.0) sec CBC 03/13/25 Range/Units 12:13 WBC 5.43 (4.50-10.00) 10*3/uL RBC 3.87 L (4.10-5.20) 10*6/uL Hgb 12.3 (12.0-15.0) g/dL Hct 37.6 (37.2-46.3) % Plt Count 276 (140-440) 10*3/uL Comprehensive Metabolic Panel 03/13/25 Range/Units 12:13 Sodium 141 (137-145) mmol/L Potassium 5.0 (3.5-5.1) mmol/L Chloride 104 (98-107) mmol/L Carbon Dioxide 30 (22-30) mmol/L BUN 13 (7-17) mg/dL Creatinine 0.66 (0.52-1.04) mg/dL Glucose 106 H (74-99) mg/dL Calcium 8.8 (8.4-10.2) mg/dL AST 34 (14-36) U/L ALT 12 (4-34) U/L Alkaline Phosphatase 91 (38-126) U/L Total Protein 6.7 (6.3-8.2) g/dL Albumin 3.8 (3.5-5.0) g/dL Current Medications Generic Name Dose Route Start Last Admin Trade Name Freq PRN Reason Stop Dose Admin Acetaminophen 650 mg 03/13/25 15:46 Acetaminophen Tab 325 Mg Tab PO Q6HR PRN Mild Pain or Fever > 100.5 Albuterol/Ipratropium 3 ml 03/13/25 20:00 03/14/25 07:56 Ipratropium-Albuterol 3 Ml Neb INHALATION Not Given RT-TID TONY Albuterol/Ipratropium 3 ml 03/13/25 15:47 Ipratropium-Albuterol 3 Ml Neb INHALATION RT-TID PRN Shortness Of Breath Or Wheezing Budesonide/Formoterol Fumarate 2 puff 03/13/25 20:00 03/14/25 07:54 Symbicort 160-4.5 Mcg Inhaler INHALATION 2 puff RT-BID TONY Administration Carvedilol 25 mg 03/13/25 17:30 03/14/25 06:04 Carvedilol 12.5 Mg Tab PO 25 mg BID-W/MEALS TONY Administration Furosemide 40 mg 03/13/25 14:00 03/14/25 02:21 Furosemide 10 Mg/Ml 4 Ml Vial IV 40 mg Q12H TONY Administration Heparin Sodium (Porcine) 5,000 unit 03/13/25 21:00 03/13/25 20:34 Heparin Sodium,Porcine 5,000 Unit/Ml 1 Ml Vial SQ Not Given Q12HR TONY Sodium Chloride 1,000 mls @ 20 mls/hr 03/13/25 13:45 03/13/25 14:42 Saline 0.9% IV 20 mls/hr .Q24H TONY Administration Levothyroxine Sodium 75 mcg 03/14/25 06:30 03/14/25 06:03 Levothyroxine 75 Mcg Tab PO 75 mcg DAILY@0630 TONY Administration Methylprednisolone Sodium Succinate 60 mg 03/13/25 16:00 03/14/25 06:04 Methylprednisolone Sod Succi 125 Mg/2 Ml Vial IV 60 mg Q6HR TONY Administration Mirtazapine 15 mg 03/13/25 21:00 03/13/25 20:32 Mirtazapine 15 Mg Tab PO 15 mg BID TONY Administration Montelukast Sodium 10 mg 03/14/25 09:00 Montelukast 10 Mg Tab PO DAILY TONY Intake and Output 03/13/25 03/14/25 03/14/25 22:59 06:59 14:59 Intake Total 240 Output Total 200 Balance 240 -200 Intake: Oral 240 Output: Urine 200 Other: Voiding Method Toilet Toilet # Voids 3 1 # Bowel Movements 1 Weight 60.328 kg 60.1 kg 03/13/25 12:13 03/13/25 12:13
[2025-03-14 16:28] LABS: Bilirubin,Urine Negative (Negative); Blood,Urine Small (Negative); Color,Urine Colorless; Glucose,Urine (UA) Negative (Negative); Hyaline Casts,Urine 1 /lpf (0-2); Ketones,Urine Negative (Negative); Leukocyte Esterase,Urine Negative (Negative); Mucus,Urine Rare /hpf; Nitrite,Urine Negative (Negative); PH, Urine 5.5 (5.0-8.0); Protein,Urine Negative (Negative); RBC,Urine 3 /hpf (0-5); Specific Gravity,Urine 1.008 (1.001-1.035); Squamous Epithelial Cell,Urine 1 /hpf (0-4); Urobilinogen,Urine 2.0 mg/dL (<2.0); WBC,Urine 1 /hpf (0-5)
[2025-03-14 16:29] LABS: Glucose,Whole Blood 204 mg/dL (70-110)
[2025-03-14 19:55] LABS: Glucose,Whole Blood 142 mg/dL (70-110)
--- NOTE | 2025-03-15 03:05 | PN ---
PROGRESS NOTE DATE OF SERVICE: 03/14/2025 SUBJECTIVE: This is an 84-year-old woman, who was admitted with shortness of breath and has COPD, CHF exacerbation. Ejection fraction of 20% to 25%. The most recent chest x-ray showed significant cardiomegaly. PAST MEDICAL HISTORY: Reviewed. REVIEW OF SYSTEMS: Fourteen-point review of systems negative except as mentioned earlier. CURRENT MEDICATIONS: Reviewed. PHYSICAL EXAMINATION: VITAL SIGNS: Pulse is 95, blood pressure 133/84, and respiration 25. HEENT: Conjunctivae normal. NECK: No jugular venous distention. CARDIOVASCULAR: S1, S2 muffled. CARDIAC: Respirations breath sounds are normal. RESPIRATION: Breath sounds diminished at the bases. A few scattered rhonchi. ABDOMEN: Soft. NERVOUS SYSTEM: Nonfocal. LABORATORY DATA: Hemoglobin 11.6, rest of the labs are noted. ASSESSMENT: 1. Congestive heart failure acute exacerbation with acute on chronic systolic dysfunction, ejection fraction of 20% to 25%. 2. Chronic obstructive pulmonary disease acute exacerbation. 3. Cksxwuwh-vh-vtcbwa mitral regurgitation. 4. Atrial fibrillation. 5. History of hypothyroidism. 6. Multiple complex medical issues. RECOMMENDATIONS AND DISCUSSION: I recommend to continue current medications, symptomatic treatment. Otherwise, continue cautious diuresis. Continue rest of medications. Chest x-ray reviewed. Prognosis guarded. Further recommendations, we will closely follow with Cardiology and Pulmonology. The 2D echo showed ejection fraction improved from 40% to 45%. LYNETTE / JASON: [id number] /
[2025-03-15 06:04] LABS: African American GFR (CKD) 69 (>60 ml/min/1.73 sqM); Anion Gap 7 mmol/L; Blood Urea Nitrogen 21 mg/dL (7-17); Calcium 8.4 mg/dL (8.4-10.2); Carbon Dioxide 31 mmol/L (22-30); Chloride 104 mmol/L (98-107); Glucose 95 mg/dL (74-99); Non-African American GFR(CKD) 60 (>60 ml/min/1.73 sqM); Potassium 4.1 mmol/L (3.5-5.1); Sodium 142 mmol/L (137-145)
[2025-03-15 06:07] LABS: Glucose,Whole Blood 90 mg/dL (70-110)
[2025-03-15 06:19] LABS: Basophils # (A) 0.01 10*3/uL (0.00-0.10); Basophils % (A) 0.1 %; Eosinophils # (A) 0.04 10*3/uL (0.04-0.35); Eosinophils % (A) 0.5 %; HCT 35.2 % (37.2-46.3); HGB 10.8 g/dL (12.0-15.0); Lymphocytes # (A) 1.03 10*3/uL (0.90-5.00); Lymphocytes % (A) 12.7 %; MCH 30.5 pg (27.0-32.0); MCHC 30.7 g/dL (32.0-37.0); MCV 99.4 fL (80.0-97.0); Monocytes # (A) 0.62 10*3/uL (0.20-1.00); Monocytes % (A) 7.6 %; Neutrophils # (A) 6.34 10*3/uL (1.80-7.70); Neutrophils % (A) 78.2 %; Platelet Count 280 10*3/uL (140-440); RBC 3.54 10*6/uL (4.10-5.20); RDW 14.6 % (11.5-14.5); WBC 8.11 10*3/uL (4.50-10.00)
[2025-03-15 08:38] VITALS: BP 96/63; RESP 16; TEMP 99
[2025-03-15] MEDS: FUROSEMIDE 40 MG TAB PO SCH (08:45)
[2025-03-15] MEDS: predniSONE 10 MG TAB PO SCH (08:45)
--- NOTE | 2025-03-15 09:46 | P.PN ---
Subjective Progress Note Date: 03/15/25 Consult reason: congestive heart failure History of present illness: This is an 84-year-old female patient of Dr. May with past medical history of chronic respiratory failure on home O2 3 L nasal cannula, COPD, hypertension, hyperlipidemia, cardiomyopathy with a EF of 20 to 25% nonischemic versus ischemic, chronic systolic heart failure, mild to moderate CAD, persistent atrial fibrillation not on anticoagulation, moderate to severe mitral regurg itation, severe tricuspid regurgitation, severe pulmonary hypertension. We have been asked to evaluate the patient for heart failure. Patient states that she had sudden onset of shortness of breath and her feet were swelling. She states [place] starts in her toes and then moves up her leg. Patient was diagnosed with heart failure but has refused IV Lasix. It seems to be mostly related to urina ry incontinence. Patient was last seen in the office on 02/27/2025 and at that time, Dr. May discussed right and left heart catheterization and patient was agreeable to this plan and this was performed on 03/05, see below. Blood pressure 106/85, heart rate 65, pulse ox 91% on 6 L nasal cannula. After long discussion with the patient, she is agreeable to take Lasix and have Tran catheter placed. -EKG: Atrial fibrillation 94 bpm. -Chest x-ray: Discoid atelectasis right midlung, small effusions noted. -Laboratory studies: WBC 5.4, hemoglobin 9.6, BUN 19 creatinine 0.75. Troponin negative x 1. proBNP 5080. -Home cardiac medications: Coreg 25 mg twice daily, also on levothyroxine. -Left and right heart catheterizations performed 03/05/2025 revealed mild to moderate CAD with 20 to 30% LAD stenosis, 50 to 60% small to moderate caliber OM 3 stenosis, 20 to 30% RCA stenosis. Low normal left and right sided filling pressures, low systemic pressures. Low normal CO/CI. 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 Plan was for aggressive risk factor modification and decrease diuretics and decrease hypertensive medications. Most of heart failure most likely due to atrial fibrillation with RVR. 03/15/2025 Patient seen and examined. Patient is currently on IV Lasix 40 mg every 12 hours. She has taken a total of 2 doses and refused her dose scheduled at 2 AM. Patient refused Tran catheter after all. She states she is willing to take oral Lasix which we will transition IV to oral. Blood pressure 96/63, heart rate 93, pulse ox 94% on room air. Repeat blood work reveals hemoglobin 10.8, BUN 21 and creatinine 0.9. Physical examination: Gen: This is an 84-year-old female in no acute distress. VS: reviewed HEENT: Head is atraumatic, normocephalic. Pupils equal, round. Sclerae is anicteric. NECK: Supple. No JVD. LUNGS: Bilateral wheezing. No intercostal retractions. HEART: Regular rate and rhythm. 3/6 systolic murmur. ABDOMEN: Soft No tenderness. EXTREMITIES: No pedal edema. No calf tenderness. NEUROLOGICAL: Patient is awake, alert and oriented x3. 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 May in 1 week. Nurse practitioner note has been reviewed, I agree with documented findings and plan of care. Patient was seen and examined. Objective - Vital Signs Vital signs: Vital Signs Temp 98.1 F 03/14/25 23:28 Pulse 90 03/15/25 03:22 Resp 20 03/15/25 03:22 BP 133/76 03/15/25 03:22 Pulse Ox 100 03/15/25 07:38 FiO2 Intake & Output 03/14/25 03/15/25 03/15/25 18:59 06:59 18:59 Intake Total 490 20 Output Total 700 Balance -210 20 Weight 60.1 kg 60 kg Intake: IV 10 20 Invasive Line 2 10 20 Oral 480 Output: Urine 700 Other: Voiding Method Toilet Toilet # Voids 0 1 - Labs CBC & Chem 7: 03/15/25 05:36 03/15/25 05:36 Labs: Abnormal Lab Results - Last 24 Hours (Table) 03/14/25 03/14/25 03/14/25 Range/Units 11:19 13:07 16:28 RBC (4.10-5.20) 10*6/uL Hgb (12.0-15.0) g/dL Hct (37.2-46.3) % MCV (80.0-97.0) fL MCHC (32.0-37.0) g/dL MPV (9.5-12.2) fL Immature Gran # (0.00-0.04) 10*3/uL Carbon Dioxide (22-30) mmol/L BUN (7-17) mg/dL POC Glucose (mg/dL) 188 H 204 H (70-110) mg/dL Urine Blood Small H (Negative) Urine Mucus Rare H (None) /hpf 03/14/25 03/15/25 03/15/25 Range/Units 19:53 05:36 05:36 RBC 3.54 L (4.10-5.20) 10*6/uL Hgb 10.8 L (12.0-15.0) g/dL Hct 35.2 L (37.2-46.3) % MCV 99.4 H (80.0-97.0) fL MCHC 30.7 L (32.0-37.0) g/dL MPV 9.4 L (9.5-12.2) fL Immature Gran # 0.07 H (0.00-0.04) 10*3/uL Carbon Dioxide 31 H (22-30) mmol/L BUN 21 H (7-17) mg/dL POC Glucose (mg/dL) 142 H (70-110) mg/dL Urine Blood (Negative) Urine Mucus (None) /hpf
[2025-03-15 11:34] LABS: Glucose,Whole Blood 91 mg/dL (70-110)
--- NOTE | 2025-03-15 12:36 | P.PN ---
Subjective Progress Note Date: 03/15/25 Principal diagnosis: Congestive heart failure. Patient is an 84-year-old female with past medical history significant for atrial fibrillation, congestive heart failure, COPD, chronic oxygen dependence, and former tobacco smoker. Of note, recently hospitalized earlier this month for acute COPD and CHF exacerbation. Most recent available echocardiogram from Dec, 2024 left-ventricular ejection fraction of 20 to 25%, with mild aortic regurgitation and moderate to severe mitral regurgitation. More recently underwent heart catheterization on 03/05/2025 remarkable for mild to moderate nonobstructive coronary artery disease. EF was 40 to 45% with apical pouching which could possibly be consistent with apical hypertrophic cardiomyopathy. Recommendation was for medical management. She has recently been seeing Dr. May referred from Cardiology. Presented the emergency department yesterday morning complaining of increased work of breathing. She is normally oxygen p endant on 3 L/min nasal cannula 08/03, which has been titrated up to 6 L/min nasal cannula. Chest x-ray showing what appears to be reversed cardiac silhouette, cardiomegaly, pulmonary vascular congestion, and small bilateral pleural effusions. NT-proBNP elevated at 5080. Remaining lab work including a CBC with a WBC count of 5.4, hemoglobin 12.3, platelets 276. CMP unremarkable, electrolytes WDL, creatinine 0.66, glucose 106. Troponin less than 0.012. EKG atrial fibrillation ventricular response, rate of 94 bpm, nonspecific T wave abnormalities. Patient currently being evaluated on the cardiac stepdown unit was ordered to start on Lasix 40 mg twice daily. However refused previous dose. She has just got up to the edge of the bed. Tachypneic. Pursed lip breathing. On 6 L/min nasal cannula. I asked the nurse to give the patient a dose of Lasix 40 mg once now. Breathing seems to have marginally improved while at rest. Patient states her shortness of breath started over the last 24 to 48 hours. Denies any chest pain, heart palpitations or syncopal events. Does sleep in a recliner versus 3 pillows at night. No significant lower extremity edema. She denies any recent sick contacts. Denies cough, sputum production, pleurisy. Denies any fevers or chills. She is already been started on combination of DuoNebs [id number], Symbicort inhaler, and IV Solu-Medrol 60 mg every 6 hours. Most recent vital signs: Temperature 98 F, heart rate 93 bpm, blood pressure 138/87 mmHg, tachypneic breathing in the mid 20s to 30s, SPO2 recorded at 92% on the 6 L/min nasal cannula. Progress note dated March 15, 2025. 84-year-old female seen in consultation yesterday. Please see my note above. The patient is seen today in room 354. Patient is resting comfortably. She is sitting in a chair next to her hospital bed. She is currently on 6 L of oxygen. The patient is not receiving any IV fluids. Currently, white count is 8.1, hemoglobin 10.8, hematocrit 35.2, platelet count 280,000. Sodium 142, potassium 4.1, chlorides 104, CO2 31, BUN 21, creatinine 0.9. Glucose is 91. Calcium is 8.4. Chest x-ray from yesterday has been reviewed. Objective - Vital Signs Vital signs: Vital Signs Temp 99.0 F 03/15/25 08:00 Pulse 93 03/15/25 08:00 Resp 16 03/15/25 08:00 BP 96/63 03/15/25 08:00 Pulse Ox 94 L 03/15/25 08:00 FiO2 Intake & Output 03/14/25 03/15/25 03/15/25 18:59 06:59 18:59 Intake Total 490 20 250 Output Total 700 Balance -210 20 250 Weight 60.1 kg 60 kg Intake: IV 10 20 10 Invasive Line 2 10 20 10 Oral 480 240 Output: Urine 700 Other: Voiding Method Toilet Toilet Toilet # Voids 0 1 - Exam No acute distress, oriented 3. Nasal O2 at 6 L, turned down to 3 L. HEENT examination is grossly unremarkable. Mucous membranes are moist. No oral lesions. Neck supple. Full range of motion. No adenopathy thyromegaly or neck vein distention. Cardiovascular examination reveals an irregular rhythm and rate. S1-S2 normal. No S3 or S4. No discernible murmur noted. Heart sounds are distant. Lungs reveal bibasilar crackles. No wheezes. No rhonchi. Breath sounds are equal bilaterally. Abdomen soft bowel sounds are heard. No masses or tenderness. Extremities are intact. No cyanosis clubbing or edema. Skin is without rash or lesion. Neurologic examination is brief but nonfocal. - Labs CBC & Chem 7: 03/15/25 05:36 03/15/25 05:36 Labs: Abnormal Lab Results - Last 24 Hours (Table) 03/14/25 03/14/25 03/14/25 Range/Units 13:07 16:28 19:53 RBC (4.10-5.20) 10*6/uL Hgb (12.0-15.0) g/dL Hct (37.2-46.3) % MCV (80.0-97.0) fL MCHC (32.0-37.0) g/dL MPV (9.5-12.2) fL Immature Gran # (0.00-0.04) 10*3/uL Carbon Dioxide (22-30) mmol/L BUN (7-17) mg/dL POC Glucose (mg/dL) 204 H 142 H (70-110) mg/dL Urine Blood Small H (Negative) Urine Mucus Rare H (None) /hpf 03/15/25 03/15/25 Range/Units 05:36 05:36 RBC 3.54 L (4.10-5.20) 10*6/uL Hgb 10.8 L (12.0-15.0) g/dL Hct 35.2 L (37.2-46.3) % MCV 99.4 H (80.0-97.0) fL MCHC 30.7 L (32.0-37.0) g/dL MPV 9.4 L (9.5-12.2) fL Immature Gran # 0.07 H (0.00-0.04) 10*3/uL Carbon Dioxide 31 H (22-30) mmol/L BUN 21 H (7-17) mg/dL POC Glucose (mg/dL) (70-110) mg/dL Urine Blood (Negative) Urine Mucus (None) /hpf Assessment and Plan Assessment: Acute on chronic hypoxic respiratory failure secondary to an acute exacerbation of systolic congestive heart failure and acute exacerbation of chronic obstructive pulmonary disease. Nonischemic cardiomyopathy, with an ejection fraction 20 to 25%. Moderate to severe mitral regurgitation. Chronic atrial fibrillation, with controlled ventricular response. Nonobstructive coronary artery disease, based on recent heart catheterization. Hypothyroidism. Chronic obstructive pulmonary disease. Chronic hypoxemic respiratory failure, secondary to above. Former tobacco smoker. Plan: Plan dated March 15, 2025. The patient is seen today in room 354. She seems relatively comfortable. She is on 6 L, but saturations are 100%. The FiO2 was turned down to 3 L. She uses 3 L at home. Currently, they are discussing discharge plans. She is not happy about going to a rehab facility at this time. All labs, x-rays, and medications are reviewed. We will continue to follow make recommendations along the way. Prognosis is guarded. Dictation was produced using [employer] dictation software. Please excuse any grammatical, word or spelling errors. Time with Patient: Less than 30
[2025-03-15 15:45] VITALS: PULSE 94
== END 2025-03-15 16:30 | disposition home health service (06) | DRG 291 ==
LOC: EC 09:18 → 4SSUR 13:43 → OBSVTOIN 13:44 → 3SCARD 17:38
PROVIDERS: ADMIT Hospitalist; ATTEND Hospitalist
DX: I11.0 Hypertensive heart disease with heart failure (principal); I50.23 Acute on chronic systolic (congestive) heart failure; J96.21 Acute and chronic respiratory failure with hypoxia; J44.1 Chronic obstructive pulmonary disease with (acute) exacerbation; I27.20 Pulmonary hypertension, unspecified; E03.9 Hypothyroidism, unspecified; I34.0 Nonrheumatic mitral (valve) insufficiency; I48.19 Other persistent atrial fibrillation; I42.8 Other cardiomyopathies; E78.5 Hyperlipidemia, unspecified; I07.1 Rheumatic tricuspid insufficiency; I25.10 Atherosclerotic heart disease of native coronary artery without angina pectoris; Z79.890 Hormone replacement therapy; Z88.6 Allergy status to analgesic agent; Z88.0 Allergy status to penicillin; Z87.891 Personal history of nicotine dependence; Z99.81 Dependence on supplemental oxygen; Z79.899 Other long term (current) drug therapy
CPT/HCPCS: 36415; 71045; 71046; 80048; 80053; 81001; 82803; 83605; 83735; 83880; 84484; 85025; 85610; 85730; 93005; 94640; 94760; 96374; 99285